=== PATIENT | male | born 1935 | race Caucasian/White ===

== ENCOUNTER 2018-02-26 07:45 | Day surgery (SDC) | payer MEDICARE, OTHER ==
[~2018-02-26 07:45] MED LIST: Lactated Ringers 1,000 ML IV SCH
[2018-02-26] MEDS ORDERED: Propofol 200 MG/20 ML SDV IV ONE (09:30)
--- NOTE | 2018-02-27 09:49 | OR ---
DATE OF OPERATION: 02/26/2018 SURGEON: Jewel Awad MD PREOPERATIVE DIAGNOSIS: Cataract, right eye. POSTOPERATIVE DIAGNOSIS: Cataract, right eye. PROCEDURES: Phacoemulsification of cataract right eye with the placement of an Dawn model, Z9002, 22.0 diopter, foldable, posterior chamber intraocular lens. CONFIGURATION MANAGEMENT ADMINISTRATOR: None. DESCRIPTION OF PROCEDURE: Peribulbar anesthetic was performed using a mixture of 2% lidocaine with Wydase. The patient was prepped and draped in the usual fashion. A 3 mm fornix based conjunctival flap was performed at the 10 o'clock position. Hemostasis was obtained using diathermy, and a 2.8 mm grooved near clear corneal incision was then made. A stab incision was made into the anterior chamber at the 12 o'clock position and a second stab wound incision was made underlying the grooved near clear corneal incision. Viscoat was instilled into the anterior chamber, and a continuous tear capsulotomy was performed. Hydrodissection was accomplished with balanced salt solution, and the nucleus was removed in a divide and conquer fashion. The remaining cortical material was removed with the irrigation and aspiration unit. Viscoat was instilled into the anterior chamber, and an BERNARD, model Z9002, 22.0 diopter, foldable, posterior chamber intraocular lens was placed into the capsular bag, the haptics being positioned at the 3 and 9 o'clock positions. The residual Viscoat was removed from the anterior chamber and the anterior chamber reformed with balanced salt solution. The wound was checked and noted to be watertight. The conjunctiva was secured in its original position with diathermy. Alphagan and Maxitrol Ointment were then placed into the patient's eye. The patient tolerated the procedure well and it was without complication. Elapsed phacoemulsification time was 25.7 seconds. Postoperative instructions as related to activities as well as medications were reviewed with the patient. The patient was instructed to return to see me on the day following surgery for the first postoperative check. The patient was also instructed to contact me prior to that time if he were to have any problems. /[id number] DEG/MODL CC: DAVID GARCIA PA-C
== END 2018-02-26 10:45 | disposition home or self-care (01) ==
LOC: FB.SDS 07:45
PROVIDERS: ATTEND Ophthalmology
DX: E11.36 Type 2 diabetes mellitus with diabetic cataract (principal); H25.811 Combined forms of age-related cataract, right eye; H25.11 Age-related nuclear cataract, right eye; H52.223 Regular astigmatism, bilateral; K21.9 Gastro-esophageal reflux disease without esophagitis; E78.5 Hyperlipidemia, unspecified; I12.9 Hypertensive chronic kidney disease with stage 1 through stage 4 chronic kidney disease, or unspecified chronic kidney disease; E11.22 Type 2 diabetes mellitus with diabetic chronic kidney disease; N18.9 Chronic kidney disease, unspecified; Z98.42 Cataract extraction status, left eye; Z96.1 Presence of intraocular lens; Z79.84 Long term (current) use of oral hypoglycemic drugs; Z79.899 Other long term (current) drug therapy
CPT/HCPCS: 00142-QZ; 82962; C1780; J2704; J7120

== ENCOUNTER 2020-07-15 20:01 | Emergency (ER) | payer MEDICARE, OTHER ==
[2020-07-15] MEDS ORDERED: Sodium Chloride 0.9% 1,000 ML IV ONE (20:18)
--- NOTE | 2020-07-15 20:49 | EDM.PDOC ---
ED HPI GENERAL MEDICAL PROBLEM - General Chief Complaint: Respiratory Problem Time Seen by Provider: 07/15/20 20:01 Source of Information: Reports: Patient History Limitations: Reports: No Limitations - History of Present Illness INITIAL COMMENTS - FREE TEXT/NARRATIVE: c/o sob lives alone, slept okay, felt fine today until 6p when had diarrhea, became sob 1h [employer] no CP, no abd pain, no n/v, no f/c/d RR mid 30s by EMS, 35-40 in ED, pallor, dec'd PO into 80s on 2 l/min NC, changed to NRB, still tachypneic lungs clear, POCUS without inc'd RV, dec'd size IVC c/w dec'd turgor UE portable CxR 1v with air bronchograms without vascular congestion (? 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, pt denies recurrent CA, [facility] no prior labs/imaging/EKGs meds: includes ASA 325 mg/d PMH: : inc'd PSA CV: htn, inc'd lipids ENDOC: DM2 ONC: lymphoma 18y ago GI: cholelithiasis, GERD RENAL: h/o acute renal failure, resolved PUL: pneumonia, COVID 2m ago PSH R cataract sxs 02-26-[address] Awad PCP Anne DIAZ pt states he does not want to be intubated and does not want his heart shocked if it should stop - Related Data Allergies Allergy/AdvReac Type Severity Reaction Status Date / Time No Known Allergies Allergy Verified 02/26/18 08:25 Home Meds: Home Meds Acyclovir [Zovirax] 400 mg PO BID PRN 02/25/18 [History] Cyclobenzaprine [Flexeril] 10 mg PO TID PRN 02/25/18 [History] Fluticasone Furoate [Flonase Sensimist] 1 spr NASBOTH BID 02/25/18 [History] Lisinopril 10 mg PO BID 02/25/18 [History] Meloxicam [Mobic] 7.5 mg PO DAILY PRN 02/25/18 [History] Omeprazole 20 mg PO DAILY 02/25/18 [History] Prochlorperazine [Compazine] 10 mg PO QID PRN 02/25/18 [History] metFORMIN HCl [Metformin HCl] 250 mg PO BIDMEALS 02/25/18 [History] Past Medical History HEENT History: Reports: Impaired Vision Cardiovascular History: Reports: Hypertension Respiratory History: Reports: Pneumonia, Recurrent Gastrointestinal History: Reports: Cholelithiasis, GERD Genitourinary History: Reports: Renal Disease Musculoskeletal History: Reports: None Neurological History: Reports: None Endocrine/Metabolic History: Reports: Diabetes, Type II Other Hematologic History: BONE MARROW BX, SOFT TISSUE BX 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 - Infectious Disease History Infectious Disease History: Reports: Chicken Pox, Measles, Mumps, Shingles - Past Surgical History HEENT Surgical History: Reports: Cataract Surgery Other HEENT Surgeries/Procedures: PHACO IOL LEFT Cardiovascular Surgical History: Reports: Other (See Below) Other Cardiovascular Surgeries/Procedures: PORT PLACEMENT ET REMOVAL GI Surgical History: Reports: EGD, Hernia, Inguinal Other Female Surgeries/Procedures: SCROTAL HERNIA Male Surgical History: Reports: Other (See Below) Social & Family History - Family History Family Medical History: No Pertinent Family History - Caffeine Use Caffeine Use: Reports: None ED ROS GENERAL - Review of Systems Review Of Systems: See Below Constitutional: Reports: No Symptoms. Denies: Fever, Chills, Malaise, Weakness, Fatigue, Night Sweats, Diaphoresis, Decreased Appetite HEENT: Reports: No Symptoms Respiratory: Reports: Shortness of Breath. Denies: Wheezing, Pleuritic Chest Pain, Cough, Sputum, Hemoptysis Cardiovascular: Reports: No Symptoms. Denies: Chest Pain, Edema, Lightheadedness, Palpitations, Syncope Endocrine: Reports: No Symptoms GI/Abdominal: Reports: No Symptoms. Denies: Abdominal Pain, Nausea, Vomiting : Reports: No Symptoms Musculoskeletal: Reports: No Symptoms Skin: Reports: No Symptoms Neurological: Reports: No Symptoms Psychiatric: Reports: No Symptoms Hematologic/Lymphatic: Reports: No Symptoms Immunologic: Reports: No Symptoms ED EXAM, GENERAL - Physical Exam Exam: See Below Exam Limited By: No Limitations General Appearance: Alert, WD/WN, Moderate Distress, Other (tachypnea, using accessory muscles, talks 3-4 word sentences, no retractions) Ears: Normal External Exam Nose: Normal Mucosa Throat/Mouth: Normal Inspection, Normal Lips, Normal Teeth, Normal Voice Head: Atraumatic, Normocephalic Neck: Normal Inspection, Supple, Non-Tender, Full Range of Motion. No: Lymphadenopathy (R), Lymphadenopathy (L) Respiratory/Chest: Lungs Clear, Accessory Muscle Use, Other (good AE, tachypnea). No: Crackles, Rales, Rhonchi, Wheezing, Stridor, Retractions, Splinting, Prolonged Expiration Cardiovascular: No Edema, No Gallop, Other (2/6 JL at LSB, no heave, irregular, normal rate). No: Gallop/S3, Gallop/S4 GI/Abdominal: Soft, Non-Tender, No Organomegaly, No Distention Back Exam: Normal Inspection, Full Range of Motion. No: CVA Tenderness (R), CVA Tenderness (L) Extremities: Normal Inspection, Normal Range of Motion, Non-Tender, No Pedal Edema Neurological: Alert, Oriented, CN II-XII Intact, Normal Cognition, No Motor/Sensory Deficits Psychiatric: Normal Affect, Normal Mood Skin Exam: Warm, Dry, Intact, Other (pallor, dec'd turgor UE, turgor wnl LE) Course - Vital Signs Last Recorded V/S: Last Vital Signs Temp 36.7 C 07/15/20 20:15 Pulse 91 07/15/20 20:15 Resp 38 H 07/15/20 20:15 BP 128/58 L 07/15/20 20:15 Pulse Ox 83 L 07/15/20 20:15 - Orders/Labs/Meds Orders: Active Orders 24 hr Category Date Time Status BIPAP Adult [RT BiPAP/CPAP] [RC] ASDIRECTED Care 07/15/20 21:09 Ordered EKG Documentation Completion [RC] ASDIRECTED Care 07/15/20 20:16 Active Abdomen Pelvis wo Cont [CT] Stat Exams 07/15/20 21:33 Ordered Chest 1V Frontal [CR] Stat Exams 07/15/20 20:18 Taken Chest wo Cont [CT] Stat Exams 07/15/20 21:32 Ordered ABG [BLOOD GAS ARTERIAL] [BG] Stat Lab 07/15/20 22:04 Ordered CBC WITH AUTO DIFF [HEME] Stat Lab 07/15/20 20:40 Received CULTURE BLOOD [BC] Urgent Lab 07/15/20 20:16 Ordered CULTURE BLOOD [BC] Urgent Lab 07/15/20 20:40 Results D-DIMER QUANTITATIVE [COAG] Stat Lab 07/15/20 20:17 Ordered INR,PT,PROTHROMBIN TIME [COAG] Stat Lab 07/15/20 21:06 Ordered LACTIC ACID [CHEM] Stat Lab 07/15/20 20:16 Ordered PTT,PARTIAL THROMBOPLSTIN TIME [COAG] Stat Lab 07/15/20 21:06 Ordered URINALYSIS W/MICROSCOPIC [UA W/MICROSCOPIC] [URIN] Stat Lab 07/15/20 20:17 Ordered Vancomycin 1 gm Med 07/15/20 22:07 Ordered Sodium Chloride 0.9% [Normal Saline] 250 ml IV ONETIME cefTRIAXone [Rocephin] Med 07/15/20 22:15 Ordered 1 gm IVPUSH Q24H Blood Culture x2 Reflex Set [OM.PC] Urgent Oth 07/15/20 20:16 Ordered EKG 12 Lead [EK] Routine Ther 07/15/20 20:16 Ordered Medication Orders Ceftriaxone Sodium (Rocephin) 1 gm IVPUSH Q24H BARRY Last Admin: 07/15/20 22:17 Dose: 1 gm Documented by: JASMYNE Vancomycin HCl 1 gm/ Sodium (Chloride) 250 mls @ 167 mls/hr IV ONETIME ONE Stop: 07/15/20 23:36 Last Admin: 07/15/20 22:20 Dose: Not Given Documented by: JASMYNE Labs: Laboratory Tests 07/15/20 07/15/20 07/15/20 Range/Units 20:40 20:40 20:40 WBC 5.3 (3.2-10.1) x10-3/uL RBC 3.44 L (3.90-5.90) x10(6)uL Hgb 9.7 L (12.9-17.7) g/dL Hct 32.3 L (38.3-50.1) % MCV 93.8 (80.8-98.7) fL MCH 28.1 (27.0-33.3) pg MCHC 29.9 (28.7-35.3) g/dL RDW 18.5 H (12.4-15.0) % Plt Count 204 (117-477) x10(3)uL MPV 9.1 (6.7-11.0) fL Add Manual Diff Yes POC VBG pH (7.32-7.43) pH Units POC VBG pCO2 (41-51) mmHg POC VBG HCO3 (21-29) mmol/L VBG Base Excess (-2-3) mmol/L O2 Delivery Device Sodium 138 (135-145) mmol/L Potassium 4.7 (3.5-5.3) mmol/L Chloride 99 L (100-110) mmol/L Carbon Dioxide 12 L (21-32) mmol/L BUN 25 H (7-18) mg/dL Creatinine 2.0 H* (0.70-1.30) mg/dL Est Cr Clr Drug Dosing TNP Estimated GFR (MDRD) 32 L (>60) BUN/Creatinine Ratio 12.5 (9-20) Glucose 124 H (80-116) mg/dL Calcium 8.4 L (8.6-10.2) mg/dL Magnesium 1.6 L (1.8-2.5) mg/dL Total Bilirubin 1.5 H (0.1-1.3) mg/dL AST 228 H* (5-25) IU/L ALT 120 H (12-36) U/L Alkaline Phosphatase 22 L (56-112) IU/L Troponin I (4.0-60.3) pg/mL C-Reactive Protein (0.5-0.9) mg/dL NT-Pro-B Natriuret Pep (<=450) pg/mL Total Protein 6.0 (6.0-8.0) g/dL Albumin 2.8 L (3.2-4.6) g/dL Globulin 3.2 g/dL Albumin/Globulin Ratio 0.9 07/15/20 07/15/20 Range/Units 20:40 20:40 WBC (3.2-10.1) x10-3/uL RBC (3.90-5.90) x10(6)uL Hgb (12.9-17.7) g/dL Hct (38.3-50.1) % MCV (80.8-98.7) fL MCH (27.0-33.3) pg MCHC (28.7-35.3) g/dL RDW (12.4-15.0) % Plt Count (117-477) x10(3)uL MPV (6.7-11.0) fL Add Manual Diff POC VBG pH 7.08 L* (7.32-7.43) pH Units POC VBG pCO2 40 L (41-51) mmHg POC VBG HCO3 12 L (21-29) mmol/L VBG Base Excess -18 L (-2-3) mmol/L O2 Delivery Device Non rebr mask Sodium (135-145) mmol/L Potassium (3.5-5.3) mmol/L Chloride (100-110) mmol/L Carbon Dioxide (21-32) mmol/L BUN (7-18) mg/dL Creatinine (0.70-1.30) mg/dL Est Cr Clr Drug Dosing Estimated GFR (MDRD) (>60) BUN/Creatinine Ratio (9-20) Glucose (80-116) mg/dL Calcium (8.6-10.2) mg/dL Magnesium (1.8-2.5) mg/dL Total Bilirubin (0.1-1.3) mg/dL AST (5-25) IU/L ALT (12-36) U/L Alkaline Phosphatase (56-112) IU/L Troponin I 2839.5 H* (4.0-60.3) pg/mL C-Reactive Protein 14.4 H* (0.5-0.9) mg/dL NT-Pro-B Natriuret Pep > 69419 H* (<=450) pg/mL Total Protein (6.0-8.0) g/dL Albumin (3.2-4.6) g/dL Globulin g/dL Albumin/Globulin Ratio Meds: Medications Generic Name Dose Route Start Last Admin Trade Name Freq PRN Reason Stop Dose Admin Ceftriaxone Sodium 1 gm 07/15/20 22:15 07/15/20 22:17 Rocephin IVPUSH 1 gm Q24H BARRY Administration Vancomycin HCl 1 gm/ Sodium 250 mls @ 167 mls/hr 07/15/20 22:07 07/15/20 22:20 Chloride IV 07/15/20 23:36 Not Given ONETIME ONE Discontinued Medications Generic Name Dose Route Start Last Admin Trade Name Zoila PRN Reason Stop Dose Admin Sodium Chloride 1,000 mls @ 999 mls/hr 07/15/20 20:18 07/15/20 20:30 Normal Saline IV 07/15/20 21:18 999 mls/hr .BOLUS ONE Administration Vancomycin HCl 1 gm/ Premix 200 mls @ 200 mls/hr 07/15/20 22:19 07/15/20 22:20 IV 07/15/20 22:20 200 mls/hr STAT ONE Administration Methylprednisolone Sodium Succinate 125 mg 07/15/20 22:15 07/15/20 22:16 Solu-Medrol IVPUSH 07/15/20 22:16 125 mg ONETIME ONE Administration - Re-Assessments/Exams Free Text/Narrative Re-Assessment/Exam: 07/15/20 22:59 d/w Dr Nickerson hospitalist at [facility] at 21:55 who accepted pt in transfer to a monitored bed, ICU physician also on the call pt is clear that he is a DNR and DNI, however he is also clear that he wants everything done short of intubation or CPR/defib does appear to have had an MN in the past several days (no acute ST changes on EKG), has pul edema (air bronchograms, fluid in horizontal fissure) and left pleural effusion, may even have a LLL pneumonia (inc'd haze in LLL) unable to do chest CTA d/t RI, however CT chest/abd/pelvis done (last CT was 2009) without contrast, results pending pt did much better on bipap, with RR that has dec'd to 22 (from 40), talking now in 6-7 word sentences, much less dyspnea, smiles, alert, pleasant, good eye contact son lives in [place], no phone # available, pt says he has it on his cell phone difficulty starting IV, one IV obtained on arrival, anesthesia came in and started a 2nd one, limited blood draw initial, lab is now trying to draw additional labs (lactic, coags, 2nd BC, d-dimer) 07/15/20 23:06 CT chest/abd/pelvis with mod b/l pleural effusions, likely loculated component laterally on left, mild cardiomegaly, ground-glass opacities throughout both lungs c/w COVID, no acute abnormalities in abd and pelvis 07/15/20 23:09 there is concern for possible PE given pt's ventilation-perfusion mismatch and acute dyspnea on arrival despite normal BP and normal HR, this continues to be a consideration including a delayed hypercoagulable state from COVID which has been documented in the literature EMS just arrived for transfer Departure - Departure Time of Disposition: 22:49 Disposition: DC/Tfer to Other 70 Condition: Serious Clinical Impression: Acute respiratory failure, Hypoxia, Metabolic acidosis, Pleural effusion, left, Bilateral pulmonary infiltrates on chest x-ray, Normocytic normochromic anemia, Elevated C-reactive protein (CRP), Elevated troponin, Elevated brain natriuretic peptide (BNP) level, Acute heart failure, Acute renal insufficiency, Hypomagnesemia, Hypoalbuminemia, Elevated liver function tests - Discharge Information *COPY OF PRESCRIPTION DRUG MONITORING REPORT IN PATIENT SHABANA: Not Applicable Forms: ED Department Discharge Sepsis Event Note (ED) - Focused Exam Vital Signs: Vital Signs Temp Pulse Resp BP Pulse Ox 07/15/20 20:15 36.7 C 91 38 H 128/58 L 83 L - My Orders Last 24 Hours: My Active Orders 07/15/20 20:16 EKG Documentation Completion [RC] ASDIRECTED CULTURE BLOOD [BC] Urgent LACTIC ACID [CHEM] Stat Blood Culture x2 Reflex Set [OM.PC] Urgent EKG 12 Lead [EK] Routine 07/15/20 20:17 D-DIMER QUANTITATIVE [COAG] Stat URINALYSIS W/MICROSCOPIC [UA W/MICROSCOPIC] [URIN] Stat 07/15/20 20:18 Chest 1V Frontal [CR] Stat 07/15/20 20:40 CBC WITH AUTO DIFF [HEME] Stat CULTURE BLOOD [BC] Urgent 07/15/20 21:06 INR,PT,PROTHROMBIN TIME [COAG] Stat PTT,PARTIAL THROMBOPLSTIN TIME [COAG] Stat 07/15/20 21:09 BIPAP Adult [RT BiPAP/CPAP] [RC] ASDIRECTED 07/15/20 21:32 Chest wo Cont [CT] Stat 07/15/20 21:33 Abdomen Pelvis wo Cont [CT] Stat 07/15/20 22:04 ABG [BLOOD GAS ARTERIAL] [BG] Stat 07/15/20 22:07 Vancomycin 1 gm Sodium Chloride 0.9% [Normal Saline] 250 ml IV ONETIME 07/15/20 22:15 cefTRIAXone [Rocephin] 1 gm IVPUSH Q24H - Assessment/Plan Last 24 Hours: My Active Orders 07/15/20 20:16 EKG Documentation Completion [RC] ASDIRECTED CULTURE BLOOD [BC] Urgent LACTIC ACID [CHEM] Stat Blood Culture x2 Reflex Set [OM.PC] Urgent EKG 12 Lead [EK] Routine 07/15/20 20:17 D-DIMER QUANTITATIVE [COAG] Stat URINALYSIS W/MICROSCOPIC [UA W/MICROSCOPIC] [URIN] Stat 07/15/20 20:18 Chest 1V Frontal [CR] Stat 07/15/20 20:40 CBC WITH AUTO DIFF [HEME] Stat CULTURE BLOOD [BC] Urgent 07/15/20 21:06 INR,PT,PROTHROMBIN TIME [COAG] Stat PTT,PARTIAL THROMBOPLSTIN TIME [COAG] Stat 07/15/20 21:09 BIPAP Adult [RT BiPAP/CPAP] [RC] ASDIRECTED 07/15/20 21:32 Chest wo Cont [CT] Stat 07/15/20 21:33 Abdomen Pelvis wo Cont [CT] Stat 07/15/20 22:04 ABG [BLOOD GAS ARTERIAL] [BG] Stat 07/15/20 22:07 Vancomycin 1 gm Sodium Chloride 0.9% [Normal Saline] 250 ml IV ONETIME 07/15/20 22:15 cefTRIAXone [Rocephin] 1 gm IVPUSH Q24H
[2020-07-15 20:59] LABS: BASE EXCESS VENOUS,POC -18 mmol/L (-2-3); HCO3 VENOUS,POC 12 mmol/L (21-29); PCO2 VENOUS,POC 40 mmHg (41-51); PH VENOUS,POC 7.08 pH Units (7.32-7.43)
[2020-07-15] MEDS ORDERED: cefTRIAXone 1 GM Vial IVPUSH SCH (22:15)
[2020-07-15] MEDS ORDERED: methylPREDNISolone Sodium Succinate 125 MG/2 ML SDV IVPUSH ONE (22:15)
--- NOTE | 2020-07-15 22:51 | PCM.SN.2 ---
- Free Text/Narrative Note: Called to ER to start an IV on a patient who has had several attempts to do so. IV was started after IV prep and 3 attempts in left wrist, site was secured and flushed with 10cc's of saline with ease. Report given to RN.
--- NOTE | 2020-07-16 10:14 | CR ---
INDICATION: Short of breath, history of lymphoma. CHEST, ONE VIEW: AP upright view of the chest 07/15/20 was compared with 07/04/18, now revealing pleuroparenchymal changes on the left which may be on the basis of pneumonia and pleuritis but should be correlated clinically in this patient with a history of lymphoma. Heavy markings on the right may represent pulmonary vascular congestion in a patient with mild or early CHF. Pneumonia on the right also cannot be excluded. Increased density at the right costophrenic angle raises question of infiltrate and possibly minimal effusion in that area. Overlying EKG leads and snaps are noted. IMPRESSION: Cannot exclude a mild or early CHF with lung edema versus areas of pneumonia bilaterally and moderate-sized left pleural effusion. MTDD
== END 2020-07-15 23:40 | disposition other institution (70) ==
LOC: FB.ED 20:01
DX: J96.01 Acute respiratory failure with hypoxia (principal); I11.0 Hypertensive heart disease with heart failure; I50.9 Heart failure, unspecified; E11.9 Type 2 diabetes mellitus without complications; K21.9 Gastro-esophageal reflux disease without esophagitis; Z79.84 Long term (current) use of oral hypoglycemic drugs; Z79.899 Other long term (current) drug therapy; E87.2 Acidosis; J90 Pleural effusion, not elsewhere classified; R91.8 Other nonspecific abnormal finding of lung field; R79.89 Other specified abnormal findings of blood chemistry; D64.9 Anemia, unspecified; N28.9 Disorder of kidney and ureter, unspecified; E83.42 Hypomagnesemia; E88.09 Other disorders of plasma-protein metabolism, not elsewhere classified
CPT/HCPCS: 36410; 36415; 51702; 71045; 71250; 74176; 80053; 81001; 83735; 83880; 84484; 85025; 86140; 87040; 93005; 94660; 96365; 96375; 99285-25; J0696; J2930; J3370; J7030

== ENCOUNTER 2020-07-22 11:42 | Inpatient (IN) | payer MEDICARE, OTHER ==
[2020-07-22] MEDS ORDERED: Famotidine 20 MG Tab PO PRN (13:15)
[2020-07-22] MEDS ORDERED: Nitroglycerin 0.4 MG Tab.SL SL PRN (13:15)
[2020-07-22] MEDS ORDERED: Cyclobenzaprine 10 MG Tab PO PRN (13:15)
[2020-07-22] MEDS ORDERED: Fluticasone Propionate Nasal Spray 16 GM Bottle NASBOTH PRN (13:27)
--- NOTE | 2020-07-22 13:28 | PCM.HP.2 ---
H&P History of Present Illness - General Date of Service: 07/22/20 Admit Problem/Dx: Admission Diagnosis/Problem Admission Diagnosis/Problem Weakness Source of Information: Patient, Provider - History of Present Illness Initial Comments - Free Text/Narative: Patrick presents for swing bed admission for strengthening and transition of care s/p myocardial infarction, congestive heart failure exacerbation, EF 15%. Was admitted to [facility] on for acute respiratory failure secondary CHF, was on BiPAP. Suspected ME week prior to admission, Angiogram showed 100% right coronary artery, 80% of circumflex/diagonal, they were unable to place any stents so medical management done. His son was present for admission, stated he is a DNR/DNI, they have been discussing palliative care/hospice but are going to see Dr Saunders, [facility] in 1 week to discuss this. His WBC was 2.1 today, platelets 67, Hgb 9.1, Sodium 134, Potassium 3.8, Chloride 98, CO2 23, BUN 31, Creatinine 1.19, Corrected calcium 8.7, phosphorus 2.8. They had done a CT and did not find any active lymphoma. He is also to follow up with Urology, Dr Patten his office is to be contacting him in regards to gross hematuria. Follow up appointment with Cardiology in 4 weeks. Today's weight is 140 pounds. Patrick and his family are discussing whether he would be best in assisted living with palliative care through home health or senior care placement with palliative care. - Related Data Allergies/Adverse Reactions: Allergies Allergy/AdvReac Type Severity Reaction Status Date / Time No Known Allergies Allergy Verified 02/26/18 08:25 Home Medications: Home Meds Cyclobenzaprine [Flexeril] 10 mg PO TID PRN 02/25/18 [History] Fluticasone Furoate [Flonase Sensimist] 1 spr NASBOTH BID PRN 02/25/18 [History] metFORMIN HCl [Metformin HCl] 250 mg PO BIDMEALS 02/25/18 [History] Aspirin [Aspirin EC] 325 mg PO DAILY 07/22/20 [History] Famotidine 20 mg PO DAILY PRN 07/22/20 [History] Furosemide 40 mg PO DAILY 07/22/20 [History] Magnesium Oxide 400 mg PO BID 07/22/20 [History] Nitroglycerin 0.4 mg SL ASDIRECTED PRN 07/22/20 [History] Potassium Chloride [Klor-Con M20] 20 meq PO DAILY 07/22/20 [History] atorvaSTATin [Lipitor] 20 mg PO BEDTIME 07/22/20 [History] calcitrioL [Calcitriol] 0.25 mcg PO DAILY 07/22/20 [History] carvediloL [Carvedilol] 6.25 mg PO BIDMEALS 07/22/20 [History] cefUROXime axetiL [Cefuroxime] 500 mg PO BID 07/22/20 [History] Past Medical History HEENT History: Reports: Impaired Vision Cardiovascular History: Reports: Hypertension, ME Respiratory History: Reports: Pneumonia, Recurrent Gastrointestinal History: Reports: Cholelithiasis, GERD Genitourinary History: Reports: Renal Disease Musculoskeletal History: Reports: None Neurological History: Reports: None Endocrine/Metabolic History: Reports: Diabetes, Type II Other Hematologic History: BONE MARROW BX, SOFT TISSUE BX Immunologic History: Reports: Other (See Below) Other Immunologic History: chemotherapy patient. 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 - Infectious Disease History Infectious Disease History: Reports: Chicken Pox, Measles, Mumps, Shingles - Past Surgical History HEENT Surgical History: Reports: Cataract Surgery Other HEENT Surgeries/Procedures: PHACO IOL LEFT Cardiovascular Surgical History: Reports: Other (See Below) Other Cardiovascular Surgeries/Procedures: PORT PLACEMENT ET REMOVAL GI Surgical History: Reports: EGD, Hernia, Inguinal Male Surgical History: Reports: Other (See Below) Social & Family History - Family History Family Medical History: No Pertinent Family History - Tobacco Use Tobacco Use Status *Q: Never Tobacco User Second Hand Smoke Exposure: No - Caffeine Use Caffeine Use: Reports: Coffee Other Caffeine Use: gatorade - Recreational Drug Use Recreational Drug Use: No H&P Review of Systems - Review of Systems: Review Of Systems: Comprehensive ROS is negative, except as noted in HPI. Exam - Exam Exam: See Below - Vital Signs Weight: 104 lb 8 oz - Exam General: Alert, Oriented, Cooperative HEENT: PERRLA, Conjunctiva Clear, EOMI, Hearing Intact, Mucosa Moist & Crescent Neck: Trachea Midline Lungs: Clear to Auscultation, Normal Respiratory Effort, Decreased Breath Sounds (bibasilar). No: Crackles, Wheezing Cardiovascular: Regular Rate, Regular Rhythm GI/Abdominal Exam: Normal Bowel Sounds, Soft, Non-Tender, No Distention (Male) Exam: Deferred Rectal (Males) Exam: Deferred Extremities: No Pedal Edema Peripheral Pulses: 2+: Radial (L), Radial (R) Skin: Ecchymosis (left dorsal hand, left lower lip) Neurological: Cranial Nerves Intact, Normal Speech, Normal Tone *Q Meaningful Use (ADM) - VTE *Q VTE Pharmacological Contraindications *Q: Thrombocytopenia - VTE Risk Assess *Q Each Risk Factor Represents 1 Point: Acute myocardial infarction, Congestive heart failure (CHF) Total Score 1 Point Risk Factors: 2 Each Risk Factor Represents 2 Points: Malignancy (present or previous) Total Score 2 Point Risk Factors: 2 Each Risk Factor Represents 3 Points: Age 75 Years or Greater Total Score 3 Point Risk Factors: 3 Each Risk Factor Represents 5 Points: None Total Score 5 Point Risk Factors: 0 Venous Thromboembolism Risk Factor Score *Q: 7 - Problem List (1) Weakness SNOMED Code(s): 56092121 ICD Code: R53.1 - WEAKNESS Status: Acute Current Visit: Yes (2) Congestive heart failure with LV diastolic dysfunction, NYHA class 4 SNOMED Code(s): 375793964, 979243817, 393424438 ICD Code: I50.30 - UNSPECIFIED DIASTOLIC (CONGESTIVE) HEART FAILURE Status: Acute Current Visit: Yes Problem Details: EF 15% on recent echo [facility]. (3) S/P thoracentesis SNOMED Code(s): 732730670, 73848597, 134959677 ICD Code: Z98.890 - OTHER SPECIFIED POSTPROCEDURAL STATES Status: Acute Current Visit: Yes Onset Date: ~07/19/20 Problem Details: 150 ml of fluid taken off 07/19 in [facility] (4) Recent non-ST elevation myocardial infarction (NSTEMI) SNOMED Code(s): 022551681 ICD Code: EIZ5313 - Status: Acute Current Visit: Yes Onset Date: ~07/08/20 (5) Diabetes SNOMED Code(s): 82794776 ICD Code: E11.9 - TYPE 2 DIABETES MELLITUS WITHOUT COMPLICATIONS Status: Acute Current Visit: Yes Qualifiers: Diabetes mellitus type: type 2 (6) B-cell lymphoma SNOMED Code(s): 033590071 ICD Code: C85.10 - UNSPECIFIED B-CELL LYMPHOMA, UNSPECIFIED SITE Status: Chronic Current Visit: Yes Qualifiers: B-cell lymphoma type: diffuse large B-cell (7) Secondary hyperparathyroidism of renal origin SNOMED Code(s): 98818963 ICD Code: N25.81 - SECONDARY HYPERPARATHYROIDISM OF RENAL ORIGIN Status: Chronic Current Visit: Yes (8) Hyperlipidemia SNOMED Code(s): 44673200 ICD Code: E78.5 - HYPERLIPIDEMIA, UNSPECIFIED Status: Chronic Current Visit: Yes (9) Chronic kidney disease SNOMED Code(s): 991095106 ICD Code: N18.9 - CHRONIC KIDNEY DISEASE, UNSPECIFIED Status: Chronic Current Visit: Yes (10) GERD (gastroesophageal reflux disease) SNOMED Code(s): 452018665 ICD Code: K21.9 - GASTRO-ESOPHAGEAL REFLUX DISEASE WITHOUT ESOPHAGITIS Status: Chronic Current Visit: Yes (11) Palliative care status SNOMED Code(s): 118947212 ICD Code: Z51.5 - ENCOUNTER FOR PALLIATIVE CARE Status: Acute Current Visit: Yes Problem List Initiated/Reviewed/Updated: Yes Orders Last 24hrs: Active Orders 24 hr Category Date Time Status Patient Status [ADT] Routine ADT 07/22/20 13:09 Ordered Blood Glucose Check, Bedside [RC] TIDMEALS Care 07/22/20 13:09 Ordered Dietary Supplements [RC] BIDMEALS Care 07/22/20 13:09 Ordered Height and Weight [RC] WEEKLY Care 07/22/20 13:09 Ordered Oxygen Therapy [RC] PRN Care 07/22/20 13:09 Ordered Up With Assistance [RC] ASDIRECTED Care 07/22/20 13:09 Ordered Up ad Megan [RC] ASDIRECTED Care 07/22/20 13:09 Ordered VTE/DVT Education [RC] Per Unit Routine Care 07/22/20 13:09 Ordered Vital Signs [RC] PER UNIT ROUTINE Care 07/22/20 13:09 Ordered Consult to Case Management/[employer] [CONS] Cons 07/22/20 13:09 Ordered Routine Consult to Spiritual Care [CONS] Routine Cons 07/22/20 13:09 Ordered OT Evaluation and Treatment [CONS] Routine Cons 07/22/20 13:09 Ordered PT Evaluation and Treatment [CONS] Routine Cons 07/22/20 13:09 Ordered Regular Diet [DIET] Diet 07/22/20 Dinner Ordered Aspirin [Ecotrin] Med 07/23/20 09:00 Ordered 325 mg PO DAILY Cyclobenzaprine [Flexeril] Med 07/22/20 13:15 Ordered 10 mg PO TID PRN Famotidine [Pepcid] Med 07/22/20 13:15 Ordered 20 mg PO DAILY PRN Fluticasone Furoate [Flonase Sensimist] Med 07/22/20 13:15 Ordered 1 spr NASBOTH BID PRN Furosemide [Lasix] Med 07/23/20 09:00 Ordered 40 mg PO DAILY Magnesium Oxide [Magnesium Oxide] Med 07/22/20 21:00 Ordered 400 mg PO BID Nitroglycerin [Nitrostat] Med 07/22/20 13:15 Ordered 0.4 mg SL ASDIRECTED PRN Potassium Chloride [Klor-Con M20] Med 07/23/20 09:00 Ordered 20 meq PO DAILY atorvaSTATin [Lipitor] Med 07/22/20 21:00 Ordered 20 mg PO BEDTIME calcitrioL [Rocaltrol] Med 07/23/20 09:00 Ordered 0.25 mcg PO DAILY carvediloL [Coreg] Med 07/22/20 18:00 Ordered 6.25 mg PO BIDMEALS cefUROXime axetiL [Cefuroxime] Med 07/22/20 21:00 Ordered 500 mg PO BID metFORMIN [Glucophage] Med 07/22/20 18:00 Ordered 250 mg PO BIDMEALS Antiembolic Hose [OM.PC] Per Unit Routine Oth 07/22/20 13:10 Ordered Resuscitation Status Routine Resus Stat 07/22/20 13:09 Ordered Assessment/Plan Comment:: 1. Admit to swing bed for rehab services and discharge planning. 2. Weakness/CHF: Continue Lasix, Coreg as prescribed. PT/OT evaluation & treat. 3. B Cell Lymphoma: WBC 2.1, platelets 67, Hgb 9.1 today. Protective isolation. Repeat CBC, CMP prior to oncology appointment next week. 4. NSTEMI: Atorvastatin 20 mg daily, Aspirin 325 mg daily. 5. Regular diet since palliative care status. 6. Activity: as tolerated, up with assistance. 7. DVT prophylaxis: contraindicated due to thrombocytopenia. 8. CODE STATUS: DNR/DNI. Discharge planning to help with placement either assisted living vs NH with palliative [facility]. - Mortality Measure Prognosis:: Poor
[2020-07-22] MEDS: Carvedilol 6.25 MG Tab PO SCH (17:34)
[2020-07-22] MEDS: metFORMIN 500 MG Tab PO SCH (17:35)
[2020-07-22] MEDS: Magnesium Oxide 400 MG Tab PO SCH (17:35)
[2020-07-22] MEDS: atorvaSTATin 20 MG Tab PO SCH (20:51)
[2020-07-22] MEDS: Cefuroxime 250 MG Tab PO SCH (20:51)
[2020-07-23] MEDS: Carvedilol 6.25 MG Tab PO SCH ×2 (08:30→18:27)
[2020-07-23] MEDS: metFORMIN 500 MG Tab PO SCH ×2 (08:30→18:27)
[2020-07-23] MEDS: Cefuroxime 250 MG Tab PO SCH ×2 (10:43→20:19)
[2020-07-23] MEDS: Calcitriol 0.25 MCG Cap PO SCH (10:43)
[2020-07-23] MEDS: Potassium Chloride 20 MEQ Tab.ER PO SCH (10:43)
[2020-07-23] MEDS: Furosemide 40 MG Tab PO SCH (10:44)
[2020-07-23] MEDS: Aspirin 325 MG Tab.EC PO SCH (10:44)
[2020-07-23] MEDS: Magnesium Oxide 400 MG Tab PO SCH ×2 (14:02→18:27)
[2020-07-23] MEDS: atorvaSTATin 20 MG Tab PO SCH (20:19)
[2020-07-24] MEDS: Carvedilol 6.25 MG Tab PO SCH ×2 (08:22→18:32)
[2020-07-24] MEDS: Potassium Chloride 20 MEQ Tab.ER PO SCH (08:23)
[2020-07-24] MEDS: Aspirin 325 MG Tab.EC PO SCH (08:23)
[2020-07-24] MEDS: metFORMIN 500 MG Tab PO SCH ×2 (08:23→18:31)
[2020-07-24] MEDS: Cefuroxime 250 MG Tab PO SCH ×2 (08:23→21:29)
[2020-07-24] MEDS: Calcitriol 0.25 MCG Cap PO SCH (08:24)
[2020-07-24] MEDS: Furosemide 40 MG Tab PO SCH (08:24)
[2020-07-24] MEDS: Magnesium Oxide 400 MG Tab PO SCH ×2 (13:04→18:31)
[2020-07-24] MEDS: atorvaSTATin 20 MG Tab PO SCH (21:29)
[2020-07-25] MEDS: Carvedilol 6.25 MG Tab PO SCH ×2 (07:53→18:34)
[2020-07-25] MEDS: metFORMIN 500 MG Tab PO SCH ×2 (07:53→18:34)
[2020-07-25] MEDS: Potassium Chloride 20 MEQ Tab.ER PO SCH (08:12)
[2020-07-25] MEDS: Calcitriol 0.25 MCG Cap PO SCH (08:12)
[2020-07-25] MEDS: Furosemide 40 MG Tab PO SCH (08:12)
[2020-07-25] MEDS: Cefuroxime 250 MG Tab PO SCH ×2 (08:12→20:34)
[2020-07-25] MEDS: Aspirin 325 MG Tab.EC PO SCH (08:12)
[2020-07-25] MEDS: Magnesium Oxide 400 MG Tab PO SCH ×2 (13:29→18:34)
[2020-07-25] MEDS: atorvaSTATin 20 MG Tab PO SCH (20:34)
[2020-07-26] MEDS: Aspirin 325 MG Tab.EC PO SCH (08:27)
[2020-07-26] MEDS: metFORMIN 500 MG Tab PO SCH ×2 (08:27→18:27)
[2020-07-26] MEDS: Potassium Chloride 20 MEQ Tab.ER PO SCH (08:27)
[2020-07-26] MEDS: Furosemide 40 MG Tab PO SCH (08:27)
[2020-07-26] MEDS: Carvedilol 6.25 MG Tab PO SCH ×2 (08:27→18:27)
[2020-07-26] MEDS: Calcitriol 0.25 MCG Cap PO SCH (08:27)
[2020-07-26] MEDS: Magnesium Oxide 400 MG Tab PO SCH ×2 (08:28→20:40)
[2020-07-26] MEDS: atorvaSTATin 20 MG Tab PO SCH (20:40)
[2020-07-27] MEDS: Carvedilol 6.25 MG Tab PO SCH ×2 (09:27→18:10)
[2020-07-27] MEDS: metFORMIN 500 MG Tab PO SCH ×2 (09:28→18:10)
[2020-07-27] MEDS: Aspirin 325 MG Tab.EC PO SCH (09:29)
[2020-07-27] MEDS: Potassium Chloride 20 MEQ Tab.ER PO SCH (09:32)
[2020-07-27] MEDS: Furosemide 40 MG Tab PO SCH (09:32)
[2020-07-27] MEDS: Magnesium Oxide 400 MG Tab PO SCH ×2 (09:32→21:03)
[2020-07-27] MEDS: Calcitriol 0.25 MCG Cap PO SCH (09:33)
[2020-07-27] MEDS: atorvaSTATin 20 MG Tab PO SCH (21:03)
[2020-07-28] MEDS: Carvedilol 6.25 MG Tab PO SCH ×2 (08:59→17:50)
[2020-07-28] MEDS: Potassium Chloride 20 MEQ Tab.ER PO SCH (09:00)
[2020-07-28] MEDS: metFORMIN 500 MG Tab PO SCH ×2 (09:00→17:51)
[2020-07-28] MEDS: Aspirin 325 MG Tab.EC PO SCH (09:00)
[2020-07-28] MEDS: Magnesium Oxide 400 MG Tab PO SCH ×2 (09:01→20:53)
[2020-07-28] MEDS: Furosemide 40 MG Tab PO SCH (09:01)
[2020-07-28] MEDS: Calcitriol 0.25 MCG Cap PO SCH (09:01)
[2020-07-28] MEDS: atorvaSTATin 20 MG Tab PO SCH (20:53)
[2020-07-29] MEDS: Carvedilol 6.25 MG Tab PO SCH ×2 (08:51→18:02)
[2020-07-29] MEDS: metFORMIN 500 MG Tab PO SCH ×2 (08:51→18:04)
[2020-07-29] MEDS: Calcitriol 0.25 MCG Cap PO SCH (08:51)
[2020-07-29] MEDS: Aspirin 325 MG Tab.EC PO SCH (08:52)
[2020-07-29] MEDS: Potassium Chloride 20 MEQ Tab.ER PO SCH (08:52)
[2020-07-29] MEDS: Furosemide 40 MG Tab PO SCH (08:52)
[2020-07-29] MEDS: Magnesium Oxide 400 MG Tab PO SCH ×2 (08:52→21:18)
[2020-07-29] MEDS: atorvaSTATin 20 MG Tab PO SCH (21:19)
[2020-07-30] MEDS: metFORMIN 500 MG Tab PO SCH ×2 (08:25→18:19)
[2020-07-30] MEDS: Potassium Chloride 20 MEQ Tab.ER PO SCH (08:25)
[2020-07-30] MEDS: Aspirin 325 MG Tab.EC PO SCH (08:25)
[2020-07-30] MEDS: Calcitriol 0.25 MCG Cap PO SCH (08:25)
[2020-07-30] MEDS: Carvedilol 6.25 MG Tab PO SCH ×2 (08:25→18:18)
[2020-07-30] MEDS: Furosemide 40 MG Tab PO SCH (08:26)
[2020-07-30] MEDS: Magnesium Oxide 400 MG Tab PO SCH ×2 (08:26→20:27)
--- NOTE | 2020-07-30 13:19 | PN ---
DATE SEEN: 07/30/2020 SUBJECTIVE: Mr. Martini is a delightful 85-year-old male seen today for review. Had been living at home. Had a recent acute myocardial infarction, underwent angiography, was of noninterventional in nature. Ejection fraction 15%. He is in swing bed for rehab with plans to discharge home Sunday to the [facility]. Son has been active in his transition. MEDICATIONS: Reviewed include: 1. Lipitor 20 mg 1 p.o. daily, CAD. 2. Carvedilol 6.25 mg b.i.d., CHF. 3. Furosemide 40 mg 1 p.o., edema. 4. Metformin 250 b.i.d., NIDDM. 5. Potassium 20 mEq daily, hypokalemia. OBJECTIVE: VITAL SIGNS: 37.3, 74, 124/63, 16, 100%. GENERAL: Appears comfortable. Soft spoken. NECK: No JVD. CHEST: Clear in all lung carmona. HEART: Occasional ectopy. Soft murmur. ABDOMEN: Benign. ASSESSMENT: Myocardial infarction with congestive heart failure. PLAN: Medications, care, and treatment appropriate. Discharge planning on Sunday. /[id number] BRENDAN/ELSY
[2020-07-30] MEDS: atorvaSTATin 20 MG Tab PO SCH (20:27)
[2020-07-31] MEDS: metFORMIN 500 MG Tab PO SCH ×2 (08:19→18:18)
[2020-07-31] MEDS: Aspirin 325 MG Tab.EC PO SCH (08:19)
[2020-07-31] MEDS: Carvedilol 6.25 MG Tab PO SCH ×2 (08:19→18:07)
[2020-07-31] MEDS: Furosemide 40 MG Tab PO SCH (08:20)
[2020-07-31] MEDS: Calcitriol 0.25 MCG Cap PO SCH (08:20)
[2020-07-31] MEDS: Potassium Chloride 20 MEQ Tab.ER PO SCH (08:20)
[2020-07-31] MEDS: Magnesium Oxide 400 MG Tab PO SCH ×2 (08:20→20:40)
--- NOTE | 2020-07-31 12:05 | PN ---
DATE SEEN: 07/31/2020 SUBJECTIVE: Patrick Martini is a delightful 85-year-old male in swing bed. Went from acute care to swing bed. Had an SC, acute renal failure, ejection fraction 15%. Angiography revealed no evidence of intervention. Placed on palliative care. Otherwise, doing well. Up, ambulating, a little weak and fatigable but comfortable. MEDICATIONS: Reviewed and appropriate. LABORATORY STUDIES: On 07/29/2020, white count 2400, hemoglobin 8.6, and platelets 116,000. PHYSICAL EXAMINATION: VITAL SIGNS: 36.7, 71, 115/62, 16, and 97%. GENERAL: Soft spoken, slender, fit male. NECK: Benign. Thyroid small. CHEST: Clear in all lung carmona. HEART: No ectopy or murmur. ABDOMEN: Benign. ASSESSMENT: Complicated cardiopulmonary disease. PLAN: Supportive measures. Intervention and care. Plan is to discharge to [facility] on Sunday. /[id number] /ELSY
[2020-07-31] MEDS: atorvaSTATin 20 MG Tab PO SCH (20:40)
[2020-08-01] MEDS: Aspirin 325 MG Tab.EC PO SCH (08:41)
[2020-08-01] MEDS: Potassium Chloride 20 MEQ Tab.ER PO SCH (08:41)
[2020-08-01] MEDS: Calcitriol 0.25 MCG Cap PO SCH (08:41)
[2020-08-01] MEDS: Carvedilol 6.25 MG Tab PO SCH ×2 (08:41→18:10)
[2020-08-01] MEDS: Furosemide 40 MG Tab PO SCH (08:42)
[2020-08-01] MEDS: Magnesium Oxide 400 MG Tab PO SCH ×2 (08:42→20:08)
[2020-08-01] MEDS: metFORMIN 500 MG Tab PO SCH ×2 (08:42→18:10)
--- NOTE | 2020-08-01 13:36 | PN ---
DATE SEEN: 08/01/2020 SUBJECTIVE: Patrick Martini is a delightful 85-year-old male seen today for review. In swing bed for rehab purposes. Known cardiac disease. Recent workup revealed nonsurgical, noninterventional disease. Ejection fraction 15%. LABORATORY STUDIES: Reviewed. Upon admission, hemoglobin 11.3, white count 4900. Electrolytes satisfactory. GFR greater than 60. MEDICATIONS: Reviewed and appropriate. OBJECTIVE: VITAL SIGNS: 36.6, 66, 141/83, 16 respiratory rate, 98%. GENERAL: Soft spoken. NECK: Benign. No JVD. CHEST: Decreased breath sounds, but clear all lung carmona. Distant heart sounds. Occasional ectopy. ABDOMEN: Benign. Little edema. ASSESSMENT: Complicated heart disease. PLAN: Support measures in place. Medications appropriate, no changes. Discharge to [facility] tomorrow. /[id number] BRENDAN/ELSY
[2020-08-01] MEDS: atorvaSTATin 20 MG Tab PO SCH (20:08)
[2020-08-02] MEDS: metFORMIN 500 MG Tab PO SCH (08:36)
[2020-08-02] MEDS: Magnesium Oxide 400 MG Tab PO SCH (08:36)
[2020-08-02] MEDS: Aspirin 325 MG Tab.EC PO SCH (08:36)
[2020-08-02] MEDS: Calcitriol 0.25 MCG Cap PO SCH (08:36)
[2020-08-02] MEDS: Furosemide 40 MG Tab PO SCH (08:36)
[2020-08-02] MEDS: Carvedilol 6.25 MG Tab PO SCH (08:37)
[2020-08-02] MEDS: Potassium Chloride 20 MEQ Tab.ER PO SCH (08:37)
--- NOTE | 2020-08-02 12:31 | DISCH ---
DISCHARGE DATE: 08/02/2020 HOSPITAL COURSE: Patrick Martini is a delightful 85-year-old male admitted to swing bed after an acute care intervention. He sustained an acute myocardial infarction, exacerbation of CHF, ejection 55%. Initial intervention by Janet Sánchez. Unable to do stents. Medical management was appropriate. He has been placed on swing bed during the stay. Please see admitting history and physical. Throughout his short-term stay, PT/OT involved. Nutrition was satisfactory, was ambulating, a good clinical response. Was weaned from supplemental O2. At the time of discharge, was in reasonable spirits, walking with a walker and cane, and doing well. DISCHARGE MEDICATIONS: Please see med recon list. PHYSICAL EXAMINATION: VITAL SIGNS: 129/68, 73, 36.3 degrees Fahrenheit, respirations 16, O2 saturation 99%. GENERAL: Appears comfortable. Tall, slender, fit male. HEENT: Unremarkable. NECK: Supple. Thyroid small. CHEST: Decreased breath sounds, but clear in all lung carmona. HEART: Sounds distant with soft murmur present. ABDOMEN: Benign. No hepatosplenomegaly. No edema. PLAN: Discharge to [facility]. Medications, care, and treatment. Close observation. Weekly weights. /[id number] BRENDAN/ELSY
== END 2020-08-02 10:15 | DRG 947 ==
LOC: FB.MS 11:42
PROVIDERS: ADMIT Family Medicine; ATTEND Family Medicine
DX: R53.1 Weakness (principal); I21.4 Non-ST elevation (NSTEMI) myocardial infarction; N25.81 Secondary hyperparathyroidism of renal origin; I13.0 Hypertensive heart and chronic kidney disease with heart failure and stage 1 through stage 4 chronic kidney disease, or unspecified chronic kidney disease; I50.32 Chronic diastolic (congestive) heart failure; Z66 Do not resuscitate; Z51.5 Encounter for palliative care; H54.7 Unspecified visual loss; K21.9 Gastro-esophageal reflux disease without esophagitis; E78.5 Hyperlipidemia, unspecified; N18.9 Chronic kidney disease, unspecified; Z79.82 Long term (current) use of aspirin; Z79.84 Long term (current) use of oral hypoglycemic drugs; Z79.899 Other long term (current) drug therapy; Z87.01 Personal history of pneumonia (recurrent); Z85.72 Personal history of non-Hodgkin lymphomas; Z98.49 Cataract extraction status, unspecified eye; Z98.890 Other specified postprocedural states; E87.6 Hypokalemia
CPT/HCPCS: 36415; 80053; 82962; 85025; 97110-GO; 97112-GP; 97116-GP; 97161-GP; 97165-GO; 97530-GO; 97530-GP; 97535-GO; A9270-GY

== ENCOUNTER 2020-11-19 14:07 | Observation (INO) | payer MEDICARE, OTHER ==
--- NOTE | 2020-11-19 16:23 | CR ---
INDICATION: Short of breath, dry cough. CHEST TWO-VIEWS [id number]: PA and lateral views of the chest 11/19/20 were compared with 07/15/20 and revealed decreased pleural parenchymal change at the left lung base compatible with partially resolved pneumonia and pleuritis and/or postsurgical change - correlate clinically. The findings could also represent recurrent pneumonia and pleuritis at the left lower lobe. Additionally, there are heavy markings at the right lung base with poorly visualized posterior sulcus and costophrenic angle raising question of a milder degree of infiltrate and effusion - pneumonia and pleuritis. The heart appeared prominent with LVE suggested. The aorta is tortuous with calcification in the arch and descending portion. Diminished bone density is suggested compatible with osteoporosis - correlate clinically. There is also noted a slight dextroconvex scoliosis of the lower thoracic spine. The diaphragm leads appear to be somewhat flattened with hyperaeration raising question of COPD. IMPRESSION: 1. Findings suggest bibasilar pneumonia and pleuritis, left greater than right, possibly recurrent on the left. 2. ASHD with probable LVE. 3. Diminished bone density suggested with mild scoliosis. 4. Probable mild COPD - correlate clinically. MTDD
[2020-11-19] MEDS ORDERED: Sodium Chloride 0.9% 10 ML Syringe FLUSH PRN (16:43)
[2020-11-19] MEDS ORDERED: Famotidine 20 MG Tab PO PRN (17:12)
[2020-11-19] MEDS ORDERED: Cyclobenzaprine 10 MG Tab PO PRN (17:12)
[2020-11-19] MEDS ORDERED: Bisacodyl 10 MG Supp RECTAL PRN (17:12)
[2020-11-19] MEDS ORDERED: Loperamide 2 MG Cap PO PRN (17:12)
[2020-11-19] MEDS ORDERED: Magnesium Hydroxide 400 MG/5 ML Susp 30 ML Cup PO PRN (17:12)
[2020-11-19] MEDS ORDERED: guaiFENesin 100 MG/5 ML Soln 5 ML UD Cup PO PRN (17:12)
[2020-11-19] MEDS ORDERED: Nitroglycerin 0.4 MG Tab.SL SL PRN (17:12)
[2020-11-19] MEDS ORDERED: Acetaminophen 325 MG Tab PO PRN (17:12)
[2020-11-19] MEDS ORDERED: Aluminum Hydroxide/Magnesium Hydroxide Susp 30 ML Cup PO PRN (17:21)
[2020-11-19] MEDS ORDERED: Fluticasone Propionate Nasal Spray 16 GM Bottle NASBOTH PRN (17:21)
[2020-11-19] MEDS: Carvedilol 6.25 MG Tab *PTOM PO SCH (18:11)
[2020-11-19] MEDS: Lactated Ringers 1,000 ML IV SCH (18:13)
--- NOTE | 2020-11-19 19:31 | PCM.HP.2 ---
H&P History of Present Illness - General Date of Service: 11/19/20 Admit Problem/Dx: Admission Diagnosis/Problem Admission Diagnosis/Problem Weakness Source of Information: Patient, Family, Provider - History of Present Illness Initial Comments - Free Text/Narative: Patrick presents today for direct admission from [facility]. Seen by Dr Rosado in the clinic for decreased appetite, pallor, and generalized weakness. He has been living at [facility] since Jul had [place] treated with medical managem ent. Had Covid in June, has been having shortness of breath and dry cough since then but worsened over the past week. His weight in Jul was 140, dropped to 130 in September per Collins his son but has been stable since then. His last Hgb was 10.2 on October 11. Denies any nosebleeds, bleeding gums, hematuria, black or bloody stools. He does bruise easily, has not had chemo for 6 months, last platelet count was normal per son and WBC was up into the normal range. Denies any fevers, chills. No facial droop or slurred speech. Denies any chest pain, abdominal pain, nausea, vomiting, constipation or diarrhea. He has been eating breakfast but no desire to eat lunch or supper when he looks at it, states he feels like he would throw it up but when pressed he states he doesn't feel nauseous or vomits after breakfast. Has been declining over past few months. He is not on palliative care or hospice they were due to see oncology in January to see how he is but going to take one day at a time. He has been having more confusion, states he can't remember how to button his shirt sometimes denies that his fingers are weak. He knows peoples names, where he is, sometimes days run together. Her son stated he has some positional dizziness but this is not new in the past week. He has been incontinent of urine & stool but he has urge to go and due to weakness can't get there in time. He has been able to use front wheel walker at [facility]. He has bruise to left cheek, Collins states that he was laying on that side yesterday with his glasses on and didn't have a bruise then. He states he does bruise easily. 0 Pain Score (Numeric/FACES): 0 - Related Data Allergies/Adverse Reactions: Allergies Allergy/AdvReac Type Severity Reaction Status Date / Time No Known Allergies Allergy Verified 02/26/18 08:25 Home Medications: Home Meds Cyclobenzaprine [Flexeril] 10 mg PO TID PRN 02/25/18 [History] Fluticasone Furoate [Flonase Sensimist] 1 spr NASBOTH BID PRN 02/25/18 [History] metFORMIN HCl [Metformin HCl] 250 mg PO BIDMEALS 02/25/18 [History] Aspirin [Aspirin EC] 325 mg PO DAILY 07/22/20 [History] Famotidine 20 mg PO DAILY PRN 07/22/20 [History] Furosemide 40 mg PO DAILY 07/22/20 [History] Nitroglycerin 0.4 mg SL ASDIRECTED PRN 07/22/20 [History] Potassium Chloride [Klor-Con M20] 20 meq PO DAILY 07/22/20 [History] atorvaSTATin [Lipitor] 20 mg PO BEDTIME 07/22/20 [History] calcitrioL [Calcitriol] 0.25 mcg PO DAILY 07/22/20 [History] carvediloL [Carvedilol] 6.25 mg PO BIDMEALS 07/22/20 [History] Magnesium Oxide 400 mg PO BID tablet 08/02/20 [Rx] Acetaminophen [Tylenol] 650 mg PO Q4H PRN 11/19/20 [History] Alum Hydrox/Mag Hydrox/Simeth [Maalox Advanced] 10 ml PO QID PRN 11/19/20 [ History] Bisacodyl [Gentle Laxative] 10 mg RECTAL Q72H PRN 11/19/20 [History] Loperamide [Imodium] 2 mg PO ASDIRECTED PRN 11/19/20 [History] Magnesium Hydroxide [Milk of Magnesia] 30 ml PO DAILY PRN 11/19/20 [History] guaiFENesin 10 ml PO Q4H PRN 11/19/20 [History] Past Medical History HEENT History: Reports: Impaired Vision Cardiovascular History: Reports: Hypertension, [place] Respiratory History: Reports: Pneumonia, Recurrent Gastrointestinal History: Reports: Cholelithiasis, GERD Genitourinary History: Reports: Renal Disease Musculoskeletal History: Reports: None Neurological History: Reports: None Endocrine/Metabolic History: Reports: Diabetes, Type II Other Hematologic History: BONE MARROW BX, SOFT TISSUE BX Immunologic History: Reports: Other (See Below) Other Immunologic History: chemotherapy patient. 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 - Infectious Disease History Infectious Disease History: Reports: Chicken Pox, Measles, Mumps, Shingles - Past Surgical History HEENT Surgical History: Reports: Cataract Surgery Other HEENT Surgeries/Procedures: PHACO IOL LEFT Cardiovascular Surgical History: Reports: Other (See Below) Other Cardiovascular Surgeries/Procedures: PORT PLACEMENT ET REMOVAL GI Surgical History: Reports: EGD, Hernia, Inguinal Male Surgical History: Reports: Other (See Below) Social & Family History - Family History Family Medical History: No Pertinent Family History - Tobacco Use Tobacco Use Status *Q: Never Tobacco User Second Hand Smoke Exposure: No - Caffeine Use Caffeine Use: Reports: Soda Other Caffeine Use: gatorade Caffeine Use Comment: 0.5-1 can a day - Recreational Drug Use Recreational Drug Use: No H&P Review of Systems - Review of Systems: Review Of Systems: Comprehensive ROS is negative, except as noted in HPI. Exam - Exam Exam: See Below - Vital Signs Vital Signs: Last Vital Signs Temp 97.9 F 11/19/20 14:36 Pulse 81 11/19/20 18:11 Resp 20 11/19/20 14:36 BP 129/59 L 11/19/20 18:11 Pulse Ox 97 11/19/20 14:36 Weight: 130 lb 6.4 oz - Exam General: Alert, Oriented (person, place), Cooperative, Other (Cathetic). No: Mild Distress HEENT: PERRLA, Conjunctiva Clear, EOMI, Hearing Intact, Glasses, Other (left zygoma ecchymosis). No: Mucosa Moist & [place] Neck: Trachea Midline. No: Lymphadenopathy Lungs: Clear to Auscultation, Normal Respiratory Effort. No: Crackles, Wheezing Cardiovascular: Regular Rate, Regular Rhythm GI/Abdominal Exam: Normal Bowel Sounds, Soft, Non-Tender, No Distention (Male) Exam: Deferred Rectal (Males) Exam: Deferred Back Exam: No: CVA Tenderness (R), CVA Tenderness (L) Extremities: No Pedal Edema, Pallor Peripheral Pulses: 2+: Radial (L), Radial (R) Skin: Ecchymosis (left zygoma) Neurological: Cranial Nerves Intact, Normal Speech. No: Strength Equal Rui ateral (generalized weakness, bilateral content developer strength 5/5 ) Neuro Extensive - Mental Status: Alert, Disorientation to Time, Nl Response to Commands - Patient Data Lab Results Last 24 hrs: Laboratory Results - last 24 hr 11/19/20 11/19/20 11/19/20 Range/Units 15:20 15:20 16:30 WBC 3.3 (3.2-10.1) x10-3/uL RBC 2.97 L (3.90-5.90) x10(6)uL Hgb 8.4 L (12.9-17.7) g/dL Hct 25.5 L (38.3-50.1) % MCV 85.8 (80.8-98.7) fL MCH 28.3 (27.0-33.3) pg MCHC 33.0 (28.7-35.3) g/dL RDW 17.7 H (12.4-15.0) % Plt Count 292 (117-477) x10(3)uL MPV 7.4 (6.7-11.0) fL Add Manual Diff Yes Neutrophils % (Manual) 60 (46-82) % Lymphocytes % (Manual) 24 (13-37) % Monocytes % (Manual) 15 H (4-12) % Eosinophils % (Manual) 1 (0-5) % Poikilocytosis Moderate H Anisocytosis Moderate H Sodium 135 (135-145) mmol/L Potassium 4.1 (3.5-5.3) mmol/L Chloride 99 L (100-110) mmol/L Carbon Dioxide 27 (21-32) mmol/L BUN 24 H (7-18) mg/dL Creatinine 1.3 (0.70-1.30) mg/dL Est Cr Clr Drug Dosing TNP Estimated GFR (MDRD) 52 L (>60) BUN/Creatinine Ratio 18.5 (9-20) Glucose 158 H (80-116) mg/dL Calcium 8.4 L (8.6-10.2) mg/dL Total Bilirubin 0.4 (0.1-1.3) mg/dL AST 26 H D (5-25) IU/L ALT 28 D (12-36) U/L Alkaline Phosphatase 35 L (56-112) IU/L Total Protein 5.2 L (6.0-8.0) g/dL Albumin 2.2 L (3.2-4.6) g/dL Globulin 3.0 g/dL Albumin/Globulin Ratio 0.7 Urine Color Yellow (YELLOW) Urine Appearance Clear (CLEAR) Urine pH 5.0 (5.0-6.5) Ur Specific [place] 1.010 (1.010-1.025) Urine Protein Negative (NEGATIVE) mg/dL Urine Glucose (UA) Normal (NORMAL) mg/dL Urine Ketones Negative (NEGATIVE) mg/dL Urine Occult Blood Negative (NEGATIVE) Urine Nitrite Negative (NEGATIVE) Urine Bilirubin Negative (NEGATIVE) Urine Urobilinogen Normal (NEGATIVE) mg/dL Ur Leukocyte Esterase Negative (NEGATIVE) Urine RBC Not seen (0-5) Urine WBC 0-5 (0-5) Ur Squamous Epith Cells Few H (NS,R,O) Urine Bacteria Few H (NS) Result Diagrams: 11/19/20 15:20 11/19/20 15:20 Sepsis Event Note - Evaluation Sepsis Screening Result: No Definite Risk - Focused Exam Vital Signs: Vital Signs Temp Pulse Pulse Resp BP BP Pulse Ox 11/19/20 18:11 81 129/59 L 11/19/20 14:36 97.9 F 81 20 129/59 L 97 *Q Meaningful Use (ADM) - VTE *Q VTE Mechanical Contraindications *Q: At Risk for Falls - Problem List (1) Anemia SNOMED Code(s): 320960229 ICD Code: D64.9 - ANEMIA, UNSPECIFIED Status: Acute Current Visit: Yes (2) Dehydration SNOMED Code(s): 21237184 ICD Code: E86.0 - DEHYDRATION Status: Acute Current Visit: Yes (3) Weakness SNOMED Code(s): 64558311 ICD Code: R53.1 - WEAKNESS Status: Acute Current Visit: No (4) Failure to thrive in adult SNOMED Code(s): 744028586 ICD Code: R62.7 - ADULT FAILURE TO THRIVE Status: Acute Current Visit: Yes (5) Diabetes SNOMED Code(s): 37714770 ICD Code: E11.9 - TYPE 2 DIABETES MELLITUS WITHOUT COMPLICATIONS Status: Chronic Current Visit: No Qualifiers: Diabetes mellitus type: type 2 (6) Palliative care status SNOMED Code(s): 894067508 ICD Code: Z51.5 - ENCOUNTER FOR PALLIATIVE CARE Status: Chronic Current Visit: No (7) B-cell lymphoma SNOMED Code(s): 951697600 ICD Code: C85.10 - UNSPECIFIED B-CELL LYMPHOMA, UNSPECIFIED SITE Status: Chronic Current Visit: No Qualifiers: B-cell lymphoma type: diffuse large B-cell (8) Hypoalbuminemia SNOMED Code(s): 487339774 ICD Code: E88.09 - OTH DISORDERS OF PLASMA-PROTEIN METABOLISM, NEC Status: Chronic Current Visit: No (9) Chronic kidney disease SNOMED Code(s): 474713442 ICD Code: N18.9 - CHRONIC KIDNEY DISEASE, UNSPECIFIED Status: Chronic Current Visit: No (10) GERD (gastroesophageal reflux disease) SNOMED Code(s): 533208004 ICD Code: K21.9 - GASTRO-ESOPHAGEAL REFLUX DISEASE WITHOUT ESOPHAGITIS Status: Chronic Current Visit: No (11) Hyperlipidemia SNOMED Code(s): 55737254 ICD Code: E78.5 - HYPERLIPIDEMIA, UNSPECIFIED Status: Chronic Current Visit: No (12) Secondary hyperparathyroidism of renal origin SNOMED Code(s): 76016144 ICD Code: N25.81 - SECONDARY HYPERPARATHYROIDISM OF RENAL ORIGIN Status: Chronic Current Visit: No (13) Congestive heart failure with LV diastolic dysfunction, NYHA class 4 SNOMED Code(s): 277953094, 572164152, 888663648 ICD Code: I50.30 - UNSPECIFIED DIASTOLIC (CONGESTIVE) HEART FAILURE Status: Chronic Current Visit: No Problem Details: EF 15% on recent echo [facility]. (14) Recent non-ST elevation myocardial infarction (NSTEMI) SNOMED Code(s): 807459522 ICD Code: MCH2714 - Status: Chronic Current Visit: No Onset Date: ~07/08/20 Problem List Initiated/Reviewed/Updated: Yes Orders Last 24hrs: Active Orders 24 hr Category Date Time Status Patient Status [ADT] Routine ADT 11/19/20 14:36 Active Dietary Supplements [RC] TIDAC Care 11/19/20 15:34 Active Pulse Oximetry [RC] .PRN Care 11/19/20 14:36 Active Up With Assistance [RC] ASDIRECTED Care 11/19/20 14:35 Active VTE/DVT Education [RC] Click to Edit Care 11/19/20 14:36 Active Vital Signs [RC] 00,04,08,12,16,20 Care 11/19/20 14:36 Active Weight [Height and Weight] [RC] UPON Care 11/19/20 14:57 Active Consult to Case Management/Cardiovascular Invasive Specialist [CONS] Cons 11/19/20 14:54 Active Routine OT Evaluation and Treatment [CONS] Routine Cons 11/19/20 14:54 Active PT Evaluation and Treatment [CONS] Routine Cons 11/19/20 14:54 Active Regular Diet [DIET] Diet 11/19/20 Dinner Active BASIC METABOLIC PANEL,BMP [CHEM] Routine Lab 11/20/20 06:00 Ordered CBC WITH AUTO DIFF [HEME] Routine Lab 11/20/20 06:00 Ordered Acetaminophen [TylenoL] Med 11/19/20 17:12 Active 650 mg PO Q4H PRN Alum Hydroxide/Mag Hydroxide [Mag-Al Susp] Med 11/19/20 17:21 Active 10 ml PO QID PRN Aspirin [Ecotrin] Med 11/20/20 09:00 Active 325 mg PO DAILY Cyclobenzaprine [Flexeril] Med 11/19/20 17:12 Active 10 mg PO TID PRN Famotidine [Pepcid] Med 11/19/20 17:12 Active 20 mg PO DAILY PRN Fluticasone Propionate [Flonase] Med 11/19/20 17:21 Active 0 gm NASBOTH BID PRN Lactated Ringers [Ringers, Lactated] 1,000 ml Med 11/19/20 16:45 Active IV ASDIRECTED Loperamide [Imodium] Med 11/19/20 17:12 Active 2 mg PO ASDIRECTED PRN Magnesium Hydroxide [Milk of Magnesia] Med 11/19/20 17:12 Active 30 ml PO DAILY PRN Magnesium Oxide Med 11/19/20 21:00 Active 400 mg PO BID Mirtazapine [Remeron] Med 11/19/20 21:00 Active 15 mg PO BEDTIME Nitroglycerin [Nitrostat] Med 11/19/20 17:12 Active 0.4 mg SL ASDIRECTED PRN Sodium Chloride 0.9% [Saline Flush] Med 11/19/20 16:43 Active 10 ml FLUSH ASDIRECTED PRN bisacodyL [Dulcolax] Med 11/19/20 17:12 Active 10 mg RECTAL Q72H PRN calcitrioL [Rocaltrol] Med 11/20/20 09:00 Active 0.25 mcg PO DAILY carvediloL [Coreg] Med 11/19/20 18:00 Active 6.25 mg PO BIDMEALS guaiFENesin [Robitussin] Med 11/19/20 17:12 Active 200 mg PO Q4H PRN Antiembolic Hose [OM.PC] Routine Ot 11/19/20 14:35 Ordered DVT/VTE Prophylaxis Reflex [OM.PC] Per Unit Routine Oth 11/19/20 14:36 Ordered Saline Lock Insert [OM.PC] Routine Oth 11/19/20 16:43 Ordered Resuscitation Status Routine Resus Stat 11/19/20 14:54 Ordered Medication Orders Acetaminophen (Acetaminophen 325 Mg Tab) 650 mg PO Q4H PRN PRN Reason: Pain/Fever Al Hydroxide/Mg Hydroxide (Aluminum Hydroxide/Magnesium Hydroxide Susp 30 Ml Cup) 10 ml PO QID PRN PRN Reason: Indigestion Aspirin (Aspirin 325 Mg Tab.Ec *Ptom) 325 mg PO DAILY [facility] Bisacodyl (Bisacodyl 10 Mg Supp) 10 mg RECTAL Q72H PRN PRN Reason: Constipation Calcitriol (Calcitriol 0.25 Mcg Cap *Ptom) 0.25 mcg PO DAILY BARRY Carvedilol (Carvedilol 6.25 Mg Tab *Ptom) 6.25 mg PO BIDMEALS [facility] Last Admin: 11/19/20 18:11 Dose: 6.25 mg Documented by: KARRI Cyclobenzaprine HCl (Cyclobenzaprine 10 Mg Tab) 10 mg PO TID PRN PRN Reason: Muscle Spasm - Painful Famotidine (Famotidine 20 Mg Tab) 20 mg PO DAILY PRN PRN Reason: Heartburn Fluticasone Propionate (Fluticasone Propionate Nasal [place] 16 Gm Bottle) 0 gm NASBOTH BID PRN PRN Reason: NASAL CONGESTION Guaifenesin (Guaifenesin 100 Mg/5 Ml Soln 5 Ml Ud Cup) 200 mg PO Q4H PRN PRN Reason: Cough Lactated Ringer's (Ringers, Lactated) 1,000 mls @ 75 mls/hr IV ASDIRECTED [facility] Last Admin: 11/19/20 18:13 Dose: 75 mls/hr Documented by: [email or web address] Loperamide HCl (Loperamide 2 Mg Cap) 2 mg PO ASDIRECTED PRN PRN Reason: Diarrhea Magnesium Hydroxide (Magnesium Hydroxide 400 Mg/5 Ml Susp 30 Ml Cup) 30 ml PO DAILY PRN PRN Reason: Constipation Magnesium Oxide (Magnesium Oxide 400 Mg Tab *Ptom) 400 mg PO BID BARRY Mirtazapine (Mirtazapine 15 Mg Tab) 15 mg PO BEDTIME [facility] Nitroglycerin (Nitroglycerin 0.4 Mg Tab.Sl) 0.4 mg SL ASDIRECTED PRN PRN Reason: Chest Pain Sodium Chloride (Sodium Chloride 0.9% 10 Ml Syringe) 10 ml FLUSH ASDIRECTED PRN PRN Reason: Keep Vein Open Assessment/Plan Comment:: 1. Admit for observation for generalized weakness, anemia, dehydration, failure to thrive. 2. Anemia: Hgb 8.4 down from 10.2 on 10/11/20, repeat labs tomorrow, transfuse if drops to 7. No source of bleeding. 3. Dehydration: LR at 75 ml/hr, monitor for fluid overload. 4. Weakness/anorexia/malnutrition: CXR some residual pneumonia from Fe but improved, no recurrence of effusion. UA negative. Add Mirtazapine 15 mg at bedtime, patient in agreement to try to help with appetite. Snacks TID. Regular diet. Family may bring any of his favorite foods. Discontinue Metformin due to decreased intake. Discontinue Lipitor as risks outweigh benefits and life expectancy is <10yrs. 5. Diet: see above. 6. Activity: up with assistance. 7. CODE: DNR/DNI. Did discuss palliative care/hospice referral at discharge. Anticipate discharge in 24-48 hours back to [facility]. - Mortality Measure Prognosis:: Poor
[2020-11-19] MEDS ORDERED: Mirtazapine 15 MG Tab PO SCH (21:00)
[2020-11-19] MEDS: Magnesium Oxide 400 MG Tab *PTOM PO SCH (21:15)
[2020-11-20] MEDS: Lactated Ringers 1,000 ML IV SCH (06:39)
[2020-11-20] MEDS: Carvedilol 6.25 MG Tab *PTOM PO SCH (08:26)
[2020-11-20] MEDS: Magnesium Oxide 400 MG Tab *PTOM PO SCH (08:27)
[2020-11-20] MEDS ORDERED: Calcitriol 0.25 MCG Cap *PTOM PO SCH (09:00)
[2020-11-20] MEDS ORDERED: Aspirin 325 MG Tab.EC *PTOM PO SCH (09:00)
--- NOTE | 2020-11-20 14:48 | PCM.DCSUM1 ---
Discharge Summary - Hospital Course HPI Initial Comments: Patrick presents today for direct admission from [facility]. Seen by Dr Rosado in the clinic for decreased appetite, pallor, and generalized weakness. He has been living at [facility] since Jul had [place] treated with medical management. Had Covid in June, has been having shortness of breath and dry cough since then but worsened over the past week. His weight in Jul was 140, dropped to 130 in September per Collins his son but has been stable since then. His last Hgb was 10.2 on October 11. Denies any nosebleeds, bleeding gums, hematuria, black or bloody stools. He does bruise easily, has not had chemo for 6 months, last platelet count was normal per son and WBC was up into the normal range. Denies any fevers, chills. No facial droop or slurred speech. Denies any chest pain, abdominal pain, nausea, vomiting, constipation or diarrhea. He has been eating breakfast but no desire to eat lunch or supper when he looks at it, states he feels like he would throw it up but when pressed he states he doesn't feel nauseous or vomits after breakfast. Has been declining over past few months. He is not on palliative care or hospice they were due to see oncology in January to see how he is but going to take one day at a time. He has been having more confusion, states he can't remember how to button his shirt sometimes denies that his fingers are weak. He knows peoples names, where he is, sometimes days run together. Her son stated he has some positional dizziness but this is not new in the past week. He has been incontinent of urine & stool but he has urge to go and due to weakness can't get there in time. He has been able to use front wheel walker at [facility]. He has bruise to left cheek, Collins states that he was laying on that side yesterday with his glasses on and didn't have a bruise then. He states he does bruise easily. Diagnosis: Stroke: No - Discharge Data Discharge Date: 11/20/20 ([facility]) Discharge Disposition: Home, W Home Health Agency Condition: Good - Referral to Home Health Date of Face to Face Encounter: 11/20/20 Reason for Homebound Status: [place] Home resident Primary Care Physician: Rodriguez Rosado MD Skilled Need: Assisted Living - Discharge Diagnosis/Problem(s) (1) Anemia SNOMED Code(s): 649348921 ICD Code: D64.9 - ANEMIA, UNSPECIFIED Status: Acute Current Visit: Yes (2) Dehydration SNOMED Code(s): 27845397 ICD Code: E86.0 - DEHYDRATION Status: Resolved Current Visit: Yes (3) Weakness SNOMED Code(s): 45902378 ICD Code: R53.1 - WEAKNESS Status: Acute Current Visit: No (4) Failure to thrive in adult SNOMED Code(s): 647150419 ICD Code: R62.7 - ADULT FAILURE TO THRIVE Status: Acute Current Visit: Yes (5) Diabetes SNOMED Code(s): 07654896 ICD Code: E11.9 - TYPE 2 DIABETES MELLITUS WITHOUT COMPLICATIONS Status: Chronic Current Visit: No Qualifiers: Diabetes mellitus type: type 2 (6) Palliative care status SNOMED Code(s): 780865274 ICD Code: Z51.5 - ENCOUNTER FOR PALLIATIVE CARE Status: Chronic Current Visit: No (7) B-cell lymphoma SNOMED Code(s): 735755296 ICD Code: C85.10 - UNSPECIFIED B-CELL LYMPHOMA, UNSPECIFIED SITE Status: Chronic Current Visit: No Qualifiers: B-cell lymphoma type: diffuse large B-cell (8) Hypoalbuminemia SNOMED Code(s): 509324178 ICD Code: E88.09 - OTH DISORDERS OF PLASMA-PROTEIN METABOLISM, NEC Status: Chronic Current Visit: No (9) Chronic kidney disease SNOMED Code(s): 111753258 ICD Code: N18.9 - CHRONIC KIDNEY DISEASE, UNSPECIFIED Status: Chronic Current Visit: No (10) GERD (gastroesophageal reflux disease) SNOMED Code(s): 525679560 ICD Code: K21.9 - GASTRO-ESOPHAGEAL REFLUX DISEASE WITHOUT ESOPHAGITIS Status: Chronic Current Visit: No (11) Hyperlipidemia SNOMED Code(s): 28539681 ICD Code: E78.5 - HYPERLIPIDEMIA, UNSPECIFIED Status: Chronic Current Visit: No (12) Secondary hyperparathyroidism of renal origin SNOMED Code(s): 37894854 ICD Code: N25.81 - SECONDARY HYPERPARATHYROIDISM OF RENAL ORIGIN Status: Chronic Current Visit: No (13) Congestive heart failure with LV diastolic dysfunction, NYHA class 4 SNOMED Code(s): 119895439, 549032503, 680425424 ICD Code: I50.30 - UNSPECIFIED DIASTOLIC (CONGESTIVE) HEART FAILURE Status: Chronic Current Visit: No Problem Details: EF 15% on recent echo [facility]. (14) Recent non-ST elevation myocardial infarction (NSTEMI) SNOMED Code(s): 036478725 ICD Code: UDH7389 - Status: Chronic Current Visit: No Onset Date: ~09/22 - Patient Summary/Data Consults: Consultations 11/19/20 14:54 Consult to Case Management/Flight Instructor [CONS] Routine Comment: Physician Instructions: Service(s) to be Consulted: Case Management Case Management Specialty/Flight Instructor: Business Strategy Manager OT Evaluation and Treatment [CONS] Routine Please Evaluate and Treat. OT Reason for Consult: ADL's This query below is only for informational purposes and is not editable. Admission Diagnosis/Problem: Weakness PT Evaluation and Treatment [CONS] Routine Please Evaluate and Treat. PT Reason for Consult: Strengthening This query below is only for informational purposes and is not editable. Admission Diagnosis/Problem: Weakness Hospital Course: Direct admission from clinic for weakness, decreased appetite, anemia. Hgb 8.4, remained stable even after IV fluids. Received LR at 75 ml/hr since admission, showed mild dehydration on admission, BUN improved 23, Cr 1.2. No evidence of bleeding. UA was negative. CXR residual infiltrates from previous pneumonia but improved from Jul 2020 xray. CBC showed blasts, ovalocytes, immature cells consistent with his lymphoma. Patrick & his son Collins declined sending for peripheral smear which agreed it would not change treatment. Since he was not symptomatic, his anemia is secondary to his malnutrition and chronic diseases, his hemoglobin did not drop to down to 7.0, we did not do any transfusion of PRBCs. Family was in agreement of this. Had discussed palliative care referral as outpatient, will discuss with Dr Kunz in a few weeks. Started Mirtazapine to improve appetite, may take 2 weeks to see full effect, discussed with son that if they didn't see an improvement with his appetite after that time, may discuss with Dr Kunz about discontinuing. Started MTV with iron/minerals, did not have enough blood from lab draw to do iron panel. He seemed to do better when picking his own food choices, had mighty shake for am snack and ice cream for afternoon & evening snacks. Discontinued Metformin due to his decreased intake as well as discontinued Lipitor since his life expectancy is less than 2 years and risks outweigh any benefits. - Patient Instructions Diet: Regular Diet as Tolerated Activity: As Tolerated Driving: Do Not Drive Showering/Bathing: May Shower Notify Provider of: Fever, Increased Pain, Swelling and Redness, Nausea and/or Vomiting Other/Special Instructions: Follow up with Dr Kunz in 1-2 weeks to reassess appetite/mirtazapine and discuss palliative care referral. - Discharge Plan *PRESCRIPTION DRUG MONITORING PROGRAM REVIEWED*: Not Applicable *COPY OF PRESCRIPTION DRUG MONITORING REPORT IN PATIENT SHABANA: Not Applicable Prescriptions/Med Rec: Multivit with Iron,Minerals [Complete Senior] 1 each PO DAILY 30 Days #30 tablet Mirtazapine [Remeron] 15 mg PO BEDTIME 30 Days #30 tablet Home Medications: Home Meds Cyclobenzaprine [Flexeril] 10 mg PO TID PRN 02/25/18 [History] Fluticasone Furoate [Flonase Sensimist] 1 spr NASBOTH BID PRN 02/25/18 [History] Aspirin [Aspirin EC] 325 mg PO DAILY 07/22/20 [History] Famotidine 20 mg PO DAILY PRN 07/22/20 [History] Furosemide 40 mg PO DAILY 07/22/20 [History] Nitroglycerin 0.4 mg SL ASDIRECTED PRN 07/22/20 [History] Potassium Chloride [Klor-Con M20] 20 meq PO DAILY 07/22/20 [History] calcitrioL [Calcitriol] 0.25 mcg PO DAILY 07/22/20 [History] carvediloL [Carvedilol] 6.25 mg PO BIDMEALS 07/22/20 [History] Magnesium Oxide 400 mg PO BID tablet 08/02/20 [Rx] Acetaminophen [Tylenol] 650 mg PO Q4H PRN 11/19/20 [History] Alum Hydrox/Mag Hydrox/Simeth [Maalox Advanced] 10 ml PO QID PRN 11/19/20 [History] Bisacodyl [Gentle Laxative] 10 mg RECTAL Q72H PRN 11/19/20 [History] Loperamide [Imodium] 2 mg PO ASDIRECTED PRN 11/19/20 [History] Magnesium Hydroxide [Milk of Magnesia] 30 ml PO DAILY PRN 11/19/20 [History] guaiFENesin 10 ml PO Q4H PRN 11/19/20 [History] Mirtazapine [Remeron] 15 mg PO BEDTIME 30 Days #30 tablet 11/20/20 [Rx] Multivit with Iron,Minerals [Complete Senior] 1 each PO DAILY 30 Days #30 tablet 11/20/20 [Rx] Referrals: Neil Kunz MD [Physician] - - Discharge Summary/Plan Comment DC Time >30 min.: No - General Info Date of Service: 11/20/20 Subjective Update: Patrick is feeling better today, ate 75% of supper last night. Wanted frosted flakes this morning instead of what kitchen sent and ate that without difficulty. No dizziness getting up to the bathroom. No constipation or diarrhea. No change to his shortness of breath, or chest pain. No incontinence. - Patient Data Vitals - Most Recent: Last Vital Signs Temp 97.4 F 11/20/20 08:00 Pulse 65 11/20/20 08:26 Resp 20 11/20/20 08:00 BP 125/59 L 11/20/20 08:26 Pulse Ox 96 11/20/20 08:00 Weight - Most Recent: 130 lb 6.4 oz I&O - Last 24 hours: Intake & Output 11/19/20 11/20/20 11/20/20 22:59 06:59 14:59 Intake Total 348 586 Output Total 100 500 Balance 248 86 Lab Results - Last 24 hrs: Laboratory Results - last 24 hr 11/19/20 11/19/20 11/19/20 Range/Units 15:20 15:20 16:30 WBC 3.3 (3.2-10.1) x10-3/uL RBC 2.97 L (3.90-5.90) x10(6)uL Hgb 8.4 L (12.9-17.7) g/dL Hct 25.5 L (38.3-50.1) % MCV 85.8 (80.8-98.7) fL MCH 28.3 (27.0-33.3) pg MCHC 33.0 (28.7-35.3) g/dL RDW 17.7 H (12.4-15.0) % Plt Count 292 (117-477) x10(3)uL MPV 7.4 (6.7-11.0) fL Add Manual Diff Yes Neutrophils % (Manual) 60 (46-82) % Band Neutrophils % (0-6) % Lymphocytes % (Manual) 24 (13-37) % Monocytes % (Manual) 15 H (4-12) % Eosinophils % (Manual) 1 (0-5) % Metamyelocytes % (0-0) % Myelocytes % (0-0) % Blast Cells % (0-0) % Poikilocytosis Moderate H Anisocytosis Moderate H Microcytosis Macrocytosis Tear Drop Cells Ovalocytes Schistocytes Sodium 135 (135-145) mmol/L Potassium 4.1 (3.5-5.3) mmol/L Chloride 99 L (100-110) mmol/L Carbon Dioxide 27 (21-32) mmol/L BUN 24 H (7-18) mg/dL Creatinine 1.3 (0.70-1.30) mg/dL Est Cr Clr Drug Dosing TNP Estimated GFR (MDRD) 52 L (>60) BUN/Creatinine Ratio 18.5 (9-20) Glucose 158 H (80-116) mg/dL Calcium 8.4 L (8.6-10.2) mg/dL Total Bilirubin 0.4 (0.1-1.3) mg/dL AST 26 H D (5-25) IU/L ALT 28 D (12-36) U/L Alkaline Phosphatase 35 L (56-112) IU/L Total Protein 5.2 L (6.0-8.0) g/dL Albumin 2.2 L (3.2-4.6) g/dL Globulin 3.0 g/dL Albumin/Globulin Ratio 0.7 Urine Color Yellow (YELLOW) Urine Appearance Clear (CLEAR) Urine pH 5.0 (5.0-6.5) Ur Specific [place] 1.010 (1.010-1.025) Urine Protein Negative (NEGATIVE) mg/dL Urine Glucose (UA) Normal (NORMAL) mg/dL Urine Ketones Negative (NEGATIVE) mg/dL Urine Occult Blood Negative (NEGATIVE) Urine Nitrite Negative (NEGATIVE) Urine Bilirubin Negative (NEGATIVE) Urine Urobilinogen Normal (NEGATIVE) mg/dL Ur Leukocyte Esterase Negative (NEGATIVE) Urine RBC Not seen (0-5) Urine WBC 0-5 (0-5) Ur Squamous Epith Cells Few H (NS,R,O) Urine Bacteria Few H (NS) 11/20/20 11/20/20 Range/Units 07:45 07:45 WBC 3.1 L (3.2-10.1) x10-3/uL RBC 2.93 L (3.90-5.90) x10(6)uL Hgb 8.4 L (12.9-17.7) g/dL Hct 25.4 L (38.3-50.1) % MCV 86.7 (80.8-98.7) fL MCH 28.8 (27.0-33.3) pg MCHC 33.3 (28.7-35.3) g/dL RDW 18.0 H (12.4-15.0) % Plt Count 252 (117-477) x10(3)uL MPV 7.2 (6.7-11.0) fL Add Manual Diff Yes Neutrophils % (Manual) 50 (46-82) % Band Neutrophils % 6 (0-6) % Lymphocytes % (Manual) 31 (13-37) % Monocytes % (Manual) 6 (4-12) % Eosinophils % (Manual) 2 (0-5) % Metamyelocytes % 3 H (0-0) % Myelocytes % 1 H (0-0) % Blast Cells % 1 H (0-0) % Poikilocytosis Marked H Anisocytosis Moderate H Microcytosis Few Macrocytosis Few Tear Drop Cells Few Ovalocytes Marked H Schistocytes Moderate H Sodium 138 (135-145) mmol/L Potassium 3.6 (3.5-5.3) mmol/L Chloride 102 (100-110) mmol/L Carbon Dioxide 25 (21-32) mmol/L BUN 23 H (7-18) mg/dL Creatinine 1.2 (0.70-1.30) mg/dL Est Cr Clr Drug Dosing 36.28 Estimated GFR (MDRD) 57 L (>60) BUN/Creatinine Ratio 19.2 (9-20) Glucose 96 (80-116) mg/dL Calcium 8.2 L (8.6-10.2) mg/dL Total Bilirubin (0.1-1.3) mg/dL AST (5-25) IU/L ALT (12-36) U/L Alkaline Phosphatase (56-112) IU/L Total Protein (6.0-8.0) g/dL Albumin (3.2-4.6) g/dL Globulin g/dL Albumin/Globulin Ratio Urine Color (YELLOW) Urine Appearance (CLEAR) Urine pH (5.0-6.5) Ur Specific [place] (1.010-1.025) Urine Protein (NEGATIVE) mg/dL Urine Glucose (UA) (NORMAL) mg/dL Urine Ketones (NEGATIVE) mg/dL Urine Occult Blood (NEGATIVE) Urine Nitrite (NEGATIVE) Urine Bilirubin (NEGATIVE) Urine Urobilinogen (NEGATIVE) mg/dL Ur Leukocyte Esterase (NEGATIVE) Urine RBC (0-5) Urine WBC (0-5) Ur Squamous Epith Cells (NS,R,O) Urine Bacteria (NS) Med Orders - Current: Current Medications Acetaminophen (Acetaminophen 325 Mg Tab) 650 mg PO Q4H PRN PRN Reason: Pain/Fever Last Admin: 11/20/20 01:10 Dose: 650 mg Documented by: Al Hydroxide/Mg Hydroxide (Aluminum Hydroxide/Magnesium Hydroxide Susp 30 Ml Cup) 10 ml PO QID PRN PRN Reason: Indigestion Aspirin (Aspirin 325 Mg Tab.Ec *Ptom) 325 mg PO DAILY [facility] Last Admin: 11/20/20 08:27 Dose: 325 mg Documented by: Bisacodyl (Bisacodyl 10 Mg Supp) 10 mg RECTAL Q72H PRN PRN Reason: Constipation Calcitriol (Calcitriol 0.25 Mcg Cap *Ptom) 0.25 mcg PO DAILY [facility] Last Admin: 11/20/20 08:28 Dose: 0.25 mcg Documented by: Carvedilol (Carvedilol 6.25 Mg Tab *Ptom) 6.25 mg PO BIDMEALS [facility] Last Admin: 11/20/20 08:26 Dose: 6.25 mg Documented by: Cyclobenzaprine HCl (Cyclobenzaprine 10 Mg Tab) 10 mg PO TID PRN PRN Reason: Muscle Spasm - Painful Famotidine (Famotidine 20 Mg Tab) 20 mg PO DAILY PRN PRN Reason: Heartburn Fluticasone Propionate (Fluticasone Propionate Nasal [place] 16 Gm Bottle) 0 gm NASBOTH BID PRN PRN Reason: NASAL CONGESTION Guaifenesin (Guaifenesin 100 Mg/5 Ml Soln 5 Ml Ud Cup) 200 mg PO Q4H PRN PRN Reason: Cough Lactated Ringer's (Ringers, Lactated) 1,000 mls @ 75 mls/hr IV ASDIRECTED [facility] Last Admin: 11/20/20 06:39 Dose: 75 mls/hr Documented by: Loperamide HCl (Loperamide 2 Mg Cap) 2 mg PO ASDIRECTED PRN PRN Reason: Diarrhea Magnesium Hydroxide (Magnesium Hydroxide 400 Mg/5 Ml Susp 30 Ml Cup) 30 ml PO DAILY PRN PRN Reason: Constipation Magnesium Oxide (Magnesium Oxide 400 Mg Tab *Ptom) 400 mg PO BID [facility] Last Admin: 11/20/20 08:27 Dose: 400 mg Documented by: Mirtazapine (Mirtazapine 15 Mg Tab) 15 mg PO BEDTIME [facility] Last Admin: 11/19/20 21:15 Dose: 15 mg Documented by: Nitroglycerin (Nitroglycerin 0.4 Mg Tab.Sl) 0.4 mg SL ASDIRECTED PRN PRN Reason: Chest Pain Sodium Chloride (Sodium Chloride 0.9% 10 Ml Syringe) 10 ml FLUSH ASDIRECTED PRN PRN Reason: Keep Vein Open - Exam General: Reports: Alert, Oriented, Cooperative, No Acute Distress Lungs: Reports: Clear to Auscultation, Normal Respiratory Effort. Denies: Crackles Cardiovascular: Reports: Regular Rate, Regular Rhythm GI/Abdominal Exam: Normal Bowel Sounds, Soft, Non-Tender, No Distention Extremities: No Pedal Edema *Q Meaningful Use (DIS) - VTE *Q VTE Mechanical Contraindications *Q: At Risk for Falls
== END 2020-11-20 13:30 | disposition home health service (06) ==
LOC: FB.MS 14:31 → INTOOBSV 14:31
PROVIDERS: ADMIT Family Medicine; ATTEND Family Medicine
DX: R53.1 Weakness (principal); D64.9 Anemia, unspecified; E86.0 Dehydration; I25.2 Old myocardial infarction; I13.0 Hypertensive heart and chronic kidney disease with heart failure and stage 1 through stage 4 chronic kidney disease, or unspecified chronic kidney disease; N18.9 Chronic kidney disease, unspecified; K21.9 Gastro-esophageal reflux disease without esophagitis; N25.81 Secondary hyperparathyroidism of renal origin; E78.5 Hyperlipidemia, unspecified; I50.32 Chronic diastolic (congestive) heart failure; Z86.16 Personal history of COVID-19; Z79.899 Other long term (current) drug therapy; Z79.82 Long term (current) use of aspirin; Z79.84 Long term (current) use of oral hypoglycemic drugs; Z98.890 Other specified postprocedural states
CPT/HCPCS: 36410; 36415; 71046; 80048; 80053; 81001; 85025; A9270-GY; G0378; G0379; J7120

== ENCOUNTER 2020-11-21 11:28 | Emergency (ER) | payer MEDICARE, OTHER ==
--- NOTE | 2020-11-21 12:12 | EDM.PDOC ---
ED HPI GENERAL MEDICAL PROBLEM - General Stated Complaint: SLURRED SPEAK, CONFUSION Time Seen by Provider: 11/21/20 12:10 Source of Information: Reports: Shelter Records - History of Present Illness INITIAL COMMENTS - FREE TEXT/NARRATIVE: 85-year-old male who presents to the emergency department from the [facility] via ambulance a urinary to increased confusion, slurred speech, low blood pressure and incontinence of urine and stool. The patient was just admitted to our facility on Sunday and discharged home yesterday. He had some mild dehydration and he was treated with fluids. His hemoglobin was 8.4 but transfusion was not felt indicated. The patient has diffuse B-cell lymphoma and he seemed to improve and discussions were had with the son about hospice care or end-of-life cares as well as comfort cares. Yesterday, the feeling was that the patient was only going to get comfort cares. Apparently today, he was having all of these symptoms and there was some concern that he could be having a stroke and therefore the patient was transported to the emergency department for evaluation. The son reiterates to me that he (and his father) would not want any aggressive procedures or therapy. Patient now is awake and alert. His blood pressure was reported to be 60-70 systolic at the [facility] but here he has been 90-100 systolic. He is awake and alert. He is disoriented but he appears in no respiratory distress and he denies any pain at present. Discussing all this with the patient's son, he would like us to check his hemoglobin and his electrolytes just to make sure that there is nothing that we could do to make his father feel better. Otherwise, the son would want his father to go back to the [facility] for comfort cares. There no other associated signs or symptoms. There are no other modifying factors. Onset: Today Duration: Getting Worse (This morning) Location: Reports: Other (No pain per the patient) Quality: Reports: Other (Not applicable) Improves with: Reports: None Worsens with: Reports: None Context: Reports: Other (As above) Associated Symptoms: Reports: No Other Symptoms (Except as above) Treatments [employer]: Reports: Other (see below) (Nothing.) - Related Data Allergies Allergy/AdvReac Type Severity Reaction Status Date / Time No Known Allergies Allergy Verified 02/26/18 08:25 Home Meds: Home Meds Cyclobenzaprine [Flexeril] 10 mg PO TID PRN 02/25/18 [History] Fluticasone Furoate [Flonase Sensimist] 1 spr NASBOTH BID PRN 02/25/18 [History] Aspirin [Aspirin EC] 325 mg PO DAILY 07/22/20 [History] Famotidine 20 mg PO DAILY PRN 07/22/20 [History] Furosemide 40 mg PO DAILY 07/22/20 [History] Nitroglycerin 0.4 mg SL ASDIRECTED PRN 07/22/20 [History] Potassium Chloride [Klor-Con M20] 20 meq PO DAILY 07/22/20 [History] calcitrioL [Calcitriol] 0.25 mcg PO DAILY 07/22/20 [History] carvediloL [Carvedilol] 6.25 mg PO BIDMEALS 07/22/20 [History] Magnesium Oxide 400 mg PO BID tablet 08/02/20 [Rx] Acetaminophen [Tylenol] 650 mg PO Q4H PRN 11/19/20 [History] Alum Hydrox/Mag Hydrox/Simeth [Maalox Advanced] 10 ml PO QID PRN 11/19/20 [History] Bisacodyl [Gentle Laxative] 10 mg RECTAL Q72H PRN 11/19/20 [History] Loperamide [Imodium] 2 mg PO ASDIRECTED PRN 11/19/20 [History] Magnesium Hydroxide [Milk of Magnesia] 30 ml PO DAILY PRN 11/19/20 [History] guaiFENesin 10 ml PO Q4H PRN 11/19/20 [History] Mirtazapine [Remeron] 15 mg PO BEDTIME 30 Days #30 tablet 11/20/20 [Rx] Multivit with Iron,Minerals [Complete Senior] 1 each PO DAILY 30 Days #30 tablet 11/20/20 [Rx] Past Medical History HEENT History: Reports: Impaired Vision Cardiovascular History: Reports: CAD, Hypertension, SC Respiratory History: Reports: Pneumonia, Recurrent Gastrointestinal History: Reports: Cholelithiasis, GERD Genitourinary History: Reports: Renal Disease Endocrine/Metabolic History: Reports: Diabetes, Type II Immunologic History: Reports: Other (See Below) Other Immunologic History: chemotherapy patient. 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 Cardiac catheterization was attempted angioplasty that was unsuccessful. GI Surgical History: Reports: EGD, Hernia, Inguinal Male Surgical History: Reports: Other (See Below) Social & Family History - Tobacco Use Tobacco Use Status *Q: Unknown Ever Used Tobacco (Nonsmoker.) - Caffeine Use Caffeine Use: Reports: Soda Other Caffeine Use: gatorade Caffeine Use Comment: 0.5-1 can a day - Alcohol Use Alcohol Use History: No - Living Situation & Occupation Living situation: Reports: Extended Care Facility (Resident of the [facility]) Occupation: Retired ED ROS GENERAL - Review of Systems Review Of Systems: Unable To Obtain Reason Not Obtained: Able answer some questions as in HPI; o/w unobtainable ED EXAM, GENERAL - Physical Exam Exam: See Below Exam Limited By: No Limitations General Appearance: Alert, No Apparent Distress, Thin Eye Exam: Bilateral Eye: EOMI, Normal Inspection (Sclera are anicteric) Ears: Normal External Exam, Hearing Grossly Normal Ear Exam: Bilateral Ear: Auricle Normal Nose: Normal Inspection, Normal Mucosa, No Blood Throat/Mouth: Normal Lips, Normal Voice, No Airway Compromise Head: Atraumatic, Normocephalic Neck: Normal Inspection, Supple, Non-Tender, Full Range of Motion Respiratory/Chest: No Respiratory Distress, Lungs Clear, Normal Breath Sounds, No Accessory Muscle Use, Chest Non-Tender Cardiovascular: Normal Peripheral Pulses, Regular Rate, Rhythm, No Gallop Peripheral Pulses: 2+: Radial (L), Radial (R) GI/Abdominal: Normal Bowel Sounds, Soft, Non-Tender, No Mass Back Exam: Normal Inspection, Full Range of Motion. No: CVA Tenderness (R), CVA Tenderness (L) Extremities: Normal Inspection, Normal Range of Motion, Non-Tender, No Pedal Edema, Normal Capillary Refill Neurological: Alert, CN II-XII Intact, No Motor/Sensory Deficits, Disoriented Psychiatric: Normal Affect Skin Exam: Warm, Dry, Intact, Normal Color, No Rash Course - Vital Signs Last Recorded V/S: Last Vital Signs Temp 37.9 C 06/20/21 11:29 Pulse 79 11/21/20 11:29 Resp 18 11/21/20 11:29 BP 98/53 L 11/21/20 11:29 Pulse Ox 96 11/21/20 11:29 - Orders/Labs/Meds Labs: Laboratory Tests 11/21/20 11/21/20 Range/Units 12:45 12:45 WBC 2.9 L (3.2-10.1) x10-3/uL RBC 2.76 L (3.90-5.90) x10(6)uL Hgb 7.8 L (12.9-17.7) g/dL Hct 23.6 L (38.3-50.1) % MCV 85.6 (80.8-98.7) fL MCH 28.2 (27.0-33.3) pg MCHC 33.0 (28.7-35.3) g/dL RDW 18.7 H (12.4-15.0) % Plt Count 298 (117-477) x10(3)uL MPV 7.1 (6.7-11.0) fL Add Manual Diff Yes Neutrophils % (Manual) 50 (46-82) % Band Neutrophils % 4 (0-6) % Lymphocytes % (Manual) 36 (13-37) % Monocytes % (Manual) 3 L (4-12) % Eosinophils % (Manual) 1 (0-5) % Basophils % (Manual) 1 (0-2) % Metamyelocytes % 2 H (0-0) % Myelocytes % 2 H (0-0) % Blast Cells % 1 H (0-0) % Poikilocytosis Marked H Anisocytosis Moderate H Macrocytosis Few Tear Drop Cells Few Ovalocytes Marked H Schistocytes Moderate H Sodium 139 (135-145) mmol/L Potassium 4.0 (3.5-5.3) mmol/L Chloride 101 (100-110) mmol/L Carbon Dioxide 25 (21-32) mmol/L BUN 24 H (7-18) mg/dL Creatinine 1.4 H (0.70-1.30) mg/dL Est Cr Clr Drug Dosing 31.00 mL/min Estimated GFR (MDRD) 48 L (>60) BUN/Creatinine Ratio 17.1 (9-20) Glucose 121 H (80-116) mg/dL Calcium 8.5 L (8.6-10.2) mg/dL Magnesium 1.5 L (1.8-2.5) mg/dL Total Bilirubin 0.5 (0.1-1.3) mg/dL AST 27 H (5-25) IU/L ALT 27 (12-36) U/L Alkaline Phosphatase 22 L (56-112) IU/L Total Protein 5.0 L (6.0-8.0) g/dL Albumin 2.1 L (3.2-4.6) g/dL Globulin 2.9 g/dL Albumin/Globulin Ratio 0.7 - Re-Assessments/Exams Free Text/Narrative Re-Assessment/Exam: 11/21/20 13:30: Patient's hemoglobin is 7.8. His creatinine is 1.4. The magnesium is 1.5. There is really nothing pointing toward any major changes from just 2 days ago. The patient is awake and alert. He is disoriented to place and time. His blood pressure is under systolic now. I discussed all this with the son and the son really just wants comfort care to this point and feel that it would be appropriate for him to go back to the [facility]. He is going to express his wishes to the staff at the [facility] for comfort cares only. The patient should increase his fluid intake. He should also increase his caloric intake as well. Departure - Departure Time of Disposition: 13:40 Disposition: DC/Tfer to Longterm [facility] 61 Condition: Fair Clinical Impression: Confusion, Transient hypotension B-cell lymphoma Qualifiers: B-cell lymphoma type: diffuse large B-cell Lymphoma site: unspecified region Qualified Code(s): C83.30 - Diffuse large B-cell lymphoma, unspecified site Anemia Qualifiers: Anemia type: unspecified type Qualified Code(s): D64.9 - Anemia, unspecified - Discharge Information Instructions: Hypotension, [id number], Confusion Referrals: Neil Kunz MD [Primary Care Provider] - Forms: ED Department Discharge Additional Instructions: The patient's blood counts aren't not much different from what was found just a few days ago. His blood pressure has improved in the emergency department and he is awake and alert. He is still somewhat disoriented but improved from previous. The patient's son really wants comfort cares only for now. You should make sure he drinks plenty of fluids. You should try to increase his caloric intake. He will need more assistance with transfers and with all of his ADLs. Sepsis Event Note (ED) - Focused Exam Vital Signs: Vital Signs Temp Pulse Resp BP Pulse Ox 11/21/20 11:29 37.9 C 79 18 98/53 L 96
== END 2020-11-21 14:05 ==
LOC: FB.ED 11:28
DX: C83.30 Diffuse large B-cell lymphoma, unspecified site (principal); I95.9 Hypotension, unspecified; D64.9 Anemia, unspecified; I25.10 Atherosclerotic heart disease of native coronary artery without angina pectoris; I10 Essential (primary) hypertension; I25.2 Old myocardial infarction; K21.9 Gastro-esophageal reflux disease without esophagitis; E11.9 Type 2 diabetes mellitus without complications; Z79.82 Long term (current) use of aspirin; Z79.899 Other long term (current) drug therapy
CPT/HCPCS: 36415; 80053; 83735; 85025; 99283; 99285